=== PATIENT | female | born 1945 | race Caucasian/White ===

== ENCOUNTER 2017-02-02 09:15 | Emergency (ER) | payer BC, MEDICARE ==
[~2017-02-02] VITALS: Ht 170.2 cm; Wt 67.6 kg
[~2017-02-02 09:15] MED LIST: ASPI81TA50 PO; ATEN25TA PO; BETA1TAB10 PO; CA C1TAB38 PO; CIPR500T94 PO; HYDR-971 PO; LEVO750T31 PO; LOSA50TA2 PO; METR500T PO; METR70GE2 VG; MULT-245 PO; ONDA4TAB10 SL; Oxycodone Hcl/Acetaminophen PO; SIMV20TA3 PO
[2017-02-02 10:05] LABS: BASO % 0 % (0-3); EOS % 0 % (0-3); HEMOGLOBIN 14.3 g/dL (12.0-15.5); LYMPH # 1.5 x10^3/uL (1.0-4.8); LYMPH % 14 % (24-48); MEAN CORPUSCULAR HEMOGLOBIN 30 pg (25-35); MEAN CORPUSCULAR HGB CONC 33 g/dL (31-37); MEAN CORPUSCULAR VOLUME 90 fL (79-100); MONO % 8 % (0-9); NEUT % 78 % (31-73); PLATELET COUNT 163 x10^3/uL (140-400); RED BLOOD COUNT 4.76 x10^6/uL (3.50-5.40); RED CELL DISTRIBUTION WIDTH 13.2 % (11.5-14.5)
[2017-02-02 10:06] LABS: CALCIUM 9.9 mg/dL (8.5-10.1); CREATININE 0.8 mg/dL (0.6-1.0); GFR 70.7; POTASSIUM 4.6 mmol/L (3.5-5.1)
[2017-02-02 10:13] LABS: DIRECT BILIRUBIN 0.1 mg/dL (0.0-0.2); TOTAL BILIRUBIN 0.7 mg/dL (0.2-1.0); TOTAL PROTEIN 6.9 g/dL (6.4-8.2)
[2017-02-02 10:33] LABS: BILIRUBIN,URINE NEGATIVE (NEG); GLUCOSE,URINE NEGATIVE (NEG); NITRITE,URINE NEGATIVE (NEG); PH,URINE 5.5; PROTEIN,URINE NEGATIVE (NEG-TRACE)
--- NOTE | 2017-02-02 11:05 | PHYS DOC ---
Past Medical History Past Medical History: Constipation, High Cholesterol, Hypertension Additional Past Medical Histor: UTI Past Surgical History: Cholecystectomy Alcohol Use: None Drug Use: None Adult General Chief Complaint Chief Complaint: NAUSEA/VOMITING/DIARRHA HPI HPI 71-year-old female presenting to the emergency department with nausea vomiting and generalized abdominal pain with watery diarrhea over the past 2 days. Her pain is cramping sensation without a focal location. It is nonradiating. It is without alleviating factors. She has a history of generalized colitis and was referred to a GI doctor however the patient did not follow-up with a GI doctor. Otherwise she denies fevers or chills. Review of systems is negative for nausea vomiting diarrhea. She denies chest pain or shortness of breath. All other review of systems is negative unless otherwise noted in history of present illness. Review of Systems Review of Systems SEE ABOVE. Current Medications Current Medications Current Medications Medications (Trade) Dose Ordered Sig/Krystin Start Time Stop Time Status Last Admin Dose Admin Iohexol (Omnipaque 240 Mg/ml) 50 ml 1X ONCE 02/02/17 11:30 02/02/17 11:31 DC 02/02/17 12:31 50 ML Iohexol (Omnipaque 300 Mg/ml) 75 ml 1X ONCE 02/02/17 11:30 02/02/17 11:31 DC 02/02/17 12:31 75 ML Allergies Allergies Allergies Coded Allergies Type Severity Reaction Last Updated Verified No Known Drug Allergies 01/25/14 No Physical Exam Physical Exam Constitutional: Well developed, well nourished, no acute distress, non-toxic appearance. HENT: Normocephalic, atraumatic, bilateral external ears normal, oropharynx moist, no oral exudates, nose normal. [] Eyes: PERRLA, EOMI, conjunctiva normal, no discharge. Neck: Normal range of motion, no tenderness, supple, no stridor. [] Cardiovascular:Heart rate regular rhythm, no murmur Lungs & Thorax: Bilateral breath sounds clear to auscultation [] Abdomen: Abdomen is soft and mildly tender generally without a focus. Negative McBurney's point. Negative Guerra sign. No rebound tenderness or guarding present. Skin: Warm, dry, no erythema, no rash. [] Back: No tenderness, no CVA tenderness. Extremities: No tenderness, no cyanosis, no clubbing, ROM intact, no edema. Neurologic: Alert and oriented X 3, normal motor function, normal sensory function, no focal deficits noted. [] Psychologic: Affect normal, judgement normal, mood normal. [] Current Patient Data Vital Signs Vital Signs Date Time Temp Pulse Resp B/P Pulse Ox O2 Delivery O2 Flow Rate FiO2 02/02/17 12:30 56 20 161/71 100 02/02/17 09:32 97.7 Room Air 97.7 Lab Values Laboratory Tests Test 02/02/17 09:45 02/02/17 10:14 White Blood Count 11.0x10^3/uL (4.0-11.0) Red Blood Count 4.76x10^6/uL (3.50-5.40) Hemoglobin 14.3g/dL (12.0-15.5) Hematocrit 43.0% (36.0-47.0) Mean Corpuscular Volume 90fL (79-100) Mean Corpuscular Hemoglobin 30pg (25-35) Mean Corpuscular Hemoglobin Concent 33g/dL (31-37) Red Cell Distribution Width 13.2% (11.5-14.5) Platelet Count 163x10^3/uL (140-400) Neutrophils (%) (Auto) 78% (31-73) H Lymphocytes (%) (Auto) 14% (24-48) L Monocytes (%) (Auto) 8% (0-9) Eosinophils (%) (Auto) 0% (0-3) Basophils (%) (Auto) 0% (0-3) Neutrophils # (Auto) 8.6x10^3uL (1.8-7.7) H Lymphocytes # (Auto) 1.5x10^3/uL (1.0-4.8) Monocytes # (Auto) 0.8x10^3/uL (0.0-1.1) Eosinophils # (Auto) 0.0x10^3/uL (0.0-0.7) Basophils # (Auto) 0.0x10^3/uL (0.0-0.2) Sodium Level 142mmol/L (136-145) Potassium Level 4.6mmol/L (3.5-5.1) Chloride Level 104mmol/L (98-107) Carbon Dioxide Level 29mmol/L (21-32) Anion Gap 9 (6-14) Blood Urea Nitrogen 22mg/dL (7-20) H Creatinine 0.8mg/dL (0.6-1.0) Estimated GFR (Cockcroft-Gault) 70.7 Glucose Level 133mg/dL (70-99) H Lactic Acid Level 1.2mmol/L (0.4-2.0) Calcium Level 9.9mg/dL (8.5-10.1) Total Bilirubin 0.7mg/dL (0.2-1.0) Direct Bilirubin 0.1mg/dL (0.0-0.2) Aspartate Amino Transferase (AST) 40U/L (15-37) H Alanine Aminotransferase (ALT) 26U/L (14-59) Alkaline Phosphatase 69U/L (46-116) Troponin I Quantitative < 0.017ng/mL (0.000-0.055) Total Protein 6.9g/dL (6.4-8.2) Albumin 4.0g/dL (3.4-5.0) Lipase 106U/L (73-393) Urine Collection Type Unknown Urine Color Jonelle Urine Clarity Clear Urine pH 5.5 Urine Specific Hope >=1.030 Urine Protein Negativemg/dL (NEG-TRACE) Urine Glucose (UA) Negativemg/dL (NEG) Urine Ketones (Stick) Negativemg/dL (NEG) Urine Blood Moderate (NEG) Urine Nitrite Negative (NEG) Urine Bilirubin Negative (NEG) Urine Urobilinogen Dipstick 1.0mg/dL (0.2 mg/dL) Urine Leukocyte Esterase Negative (NEG) Urine RBC Occ/HPF (0-2) Urine WBC 0/HPF (0-4) Urine Squamous Epithelial Cells Occ/LPF Urine Amorphous Sediment Present/HPF Urine Bacteria Few/HPF (0-FEW) Urine Mucus Mod/LPF Laboratory Tests 02/02/17 09:45 Laboratory Tests 02/02/17 09:45 EKG EKG [] Radiology/Procedures Radiology/Procedures [] Course & Med Decision Making Course & Med Decision Making Pertinent Labs and Imaging studies reviewed. (See chart for details) [] 71-year-old female presenting to the emergency department with decreased mental status. Vital signs afebrile otherwise mild hypertension otherwise unremarkable. Pertinent physical exam showed a mildly tender abdomen without a focus. Nontender appendix. Nontender gallbladder. IV established, bloodwork given. CBC unremarkable. Chemistry panel shows mild uremia otherwise unremarkable. Troponin negative. Lactic acid within normal limits. CT the abdomen pelvis showed chronic thickening of the colon. On reexamination the patient's abdomen was less tender without any pain medications given. SHe is feeling better. She was able to tolerate oral intake. I recommended the patient follow-up with our tube filler over the next 5-7 days for colonoscopy. She was subsequent discharged home to follow up with her primary care doctor over the next 2-3 days if her symptoms did not improve. Dragon Disclaimer Dragon Disclaimer This electronic medical record was generated, in whole or in part, using a voice recognition dictation system. Departure Departure Impression: Primary Impression: Nausea & vomiting Additional Impression: Chronic colitis Disposition: 01 HOME, SELF-CARE Condition: STABLE Referrals: MABEL BROOKS MD (PCP) MARKO STUART MD in 5-7 days Patient Instructions: Abdominal Pain, Nausea and Vomiting Additional Instructions: Thank you for allowing us to participate in your care today. Followup with your primary care physician in 3 days if your symptoms do not improve. If you do not have a primary care provider you can ask for a list of our primary care providers. Return to the emergency department you have any new or concerning findings. This should be evaluated by the primary care physician and any necessary consulting services for continued management within a few days after discharge. Return to emergency room if you have any new or concerning symptoms including but not limited to fever, chills, nausea, vomiting, intractable pain, any new rashes, chest pain, shortness of air, uncontrolled bleeding, difficulty breathing, and/or vision loss. You may have been prescribed medication that can change in your level of thinking and ability to operate machinery. These medications include hydrocodone and Ativan. Also, Benadryl has been known to do this as well. Be sure to check with your pharmacist and ask if the medications you've prescribed can affect your level of consciousness. I recommend not operating heavy machinery or driving while on medication such as these. Scripts Hydrocodone Bit/Acetaminophen (Hydrocodone-Apap 5-325 )1 Each Tablet1 Tab PO PRN Q6HRS PRN PAIN #15 TAB Be careful as this medication may cause you to be drowsy or tired. Do not drive on this medication. Prov:SHRUTHI ERICKSON MD 02/02/17 Ondansetron (Zofran Odt)4 Mg Tab.rapdis1 Tab SL PRN Q8HRS PRN NAUSEA #6 TAB Prov:SHRUTHI ERICKSON MD 02/02/17 Problem Qualifiers SHRUTHI ERICKSON MD Feb 02, 2017 11:05
[2017-02-02 11:06] LABS: BACTERIA,URINE FEW /HPF (0-FEW); RBC,URINE OCC /HPF (0-2); SQUAMOUS EPITHELIAL CELL,UR OCC /LPF; WBC,URINE 0 /HPF (0-4)
[2017-02-02] MEDS ORDERED: IOHEXOL 240 MG/ML 50ML VIAL. PO ONE (11:30)
[2017-02-02] MEDS ORDERED: IOHEXOL 300 MG/ML 75 ML VIAL IV ONE (11:30)
[2017-02-02 12:30] VITALS: BP 161/71
--- NOTE | 2017-02-02 13:24 | RAD ---
CT of the abdomen and pelvis with contrast, 02/02/2017: History: Abdominal pain, colitis Multidetector CT imaging was performed following oral, IV and rectal administration of contrast. Comparison is made to a study from 06/02/2016. The gallbladder is surgically absent. There is mild pneumobilia. This is most commonly due to a previous sphincterotomy or bile duct surgery. There is no evidence of a hepatic mass or significant bile duct dilatation. The pancreas is unremarkable. The spleen is of normal size. There is a 3 cm cyst arising from the anterior aspect of the right kidney. The kidneys are otherwise unremarkable. Mild aortic calcific plaquing is present without evidence of aneurysm. No abdominal or pelvic adenopathy is seen.. The uterus is of normal size. There is mild smooth mural thickening involving predominantly the sigmoid colon. No bowel dilatation is evident. The small bowel loops are unremarkable. No free fluid or free air is evident in the abdomen or pelvis. Mild to moderate multilevel degenerative changes are present in the spine. IMPRESSION: 1. Mild sigmoid mural thickening suggesting chronic or recurrent colitis. Similar sigmoid mural thickening has been present on previous studies including a CT study from 11/27/2008. Is there a history of inflammatory bowel disease or old radiation therapy to the pelvis? 2. Pneumobilia, most commonly on a postsurgical basis or secondary to previous sphincterotomy. Correlation with the patient's surgical history is suggested. PQRS Compliance Statement: One or more of the following individualized dose reduction techniques were utilized for this examination: 1. Automated exposure control 2. Adjustment of the mA and/or kV according to patient size 3. Use of iterative reconstruction technique
[2017-02-02] MEDS ORDERED: HYDR-2666 PO (13:36)
[2017-02-02] MEDS ORDERED: ONDA4TAB10 SL (13:36)
== END 2017-02-02 13:57 | disposition home or self-care (01) ==
LOC: ER 09:15
DX: K52.9 Noninfective gastroenteritis and colitis, unspecified (principal); I10 Essential (primary) hypertension; E78.00 Pure hypercholesterolemia, unspecified; Z90.49 Acquired absence of other specified parts of digestive tract
CPT/HCPCS: 36415; 74177; 80048; 80076; 81001; 83605; 83690; 84484; 85027; 99285; Q9966; Q9967

== ENCOUNTER → 2017-02-25 | Day surgery (SDC) | payer BC, MEDICARE ==
[~2017-02-25] MED LIST changes: +HYDR-2666 PO; +IV RINGERS,LACTATED 1000ML 1,000 ML IV SCH; +PROPOFOL 40 ML IV ONE; +SODIUM PHOSPHATES 19/7GM 133 ML ENEMA. ONE
[2017-02-25 08:15] VITALS: BP 167/66
--- NOTE | 2017-02-26 14:02 | PATHOLOGY ---
PATHOLOGY REPORT * * * * * * * * FINAL DIAGNOSIS: Random colon biopsy: - Focal acute colitis. See comment. COMMENT: Sections of the random colon biopsy reveal multiple segments of colonic mucosa. A majority of the mucosal biopsies appear relatively normal or show edema of the lamina propria. However, there are several biopsy segments that show an acute inflammatory cell infiltrate within the lamina propria associated with shrunken colonic glands. The differential diagnosis includes acute self-limited colitis, acute infectious colitis, and acute ischemia. There is no evidence of a chronic destructive colitis. (JPM:[email or web address]; d/t: 02/26/17) REPORT ELECTRONICALLY SIGNED BY: Frederick Enciso M.D. DATE/TIME: 02/26/2017 14:00 * * * * * * * * GROSS PATHOLOGY: Received in formalin labeled "Neelam Voss and random colon bx," are multiple segments of bland soft tissue measuring 2.4 x 0.4 x 0.2 cm in aggregate dimensions and ranging from 0.2 to 0.5 cm in maximum dimension. The specimen is submitted entirely in cassette A1. (TTL; 02/25/2017) INITIAL CPT CODE(S): A; 42034 Professional services performed by [facility] [place] [address] Technical services performed by [facility] at [address] [place] [address], [facility] [address] [address]. SPECIMEN(S) RECEIVED: A.Random biopsy, r/o microscopic colitis CLINICAL HISTORY: Abdominal pain, diarrhea PATIENT: NEELAM VOSS /AGE: 1 1945 (Age: 71) PATIENT #: [id number] ALT CASE #: SPECIMEN COLLECTION DATE: 02/25/2017 SPECIMEN RECEIVED DATE: 02/25/2017 [facility] - [id number] [place] [address] - PHONE: [phone] * * * END OF REPORT * * *
== END | disposition home or self-care (01) ==
LOC: ENDOS 06:06
PROVIDERS: ATTEND Internal Medicine Gastroenterology
DX: K64.0 First degree hemorrhoids (principal); K52.9 Noninfective gastroenteritis and colitis, unspecified; K57.30 Diverticulosis of large intestine without perforation or abscess without bleeding; I10 Essential (primary) hypertension; E78.00 Pure hypercholesterolemia, unspecified; Z72.89 Other problems related to lifestyle; Z90.49 Acquired absence of other specified parts of digestive tract
CPT/HCPCS: J2704

== ENCOUNTER → 2017-04-27 | Outpatient (CLI) | payer BC ==
[2016-07-10 16:00] VITALS: BP_SYST 167
[2017-02-25 08:15] VITALS: BP_DIAS 66
[~2017-04-27] MED LIST changes: -IV RINGERS,LACTATED 1000ML 1,000 ML IV SCH; -PROPOFOL 40 ML IV ONE; -SODIUM PHOSPHATES 19/7GM 133 ML ENEMA. ONE
--- NOTE | 2017-04-27 13:53 | RAD ---
DATE: 04/27/2017 EXAM: DIGITAL SCREEN BILAT W/CAD HISTORY: Screening COMPARISON: 08/31/2009 This study was interpreted with the benefit of Computerized Aided Detection (CAD). FINDINGS: Breast Density: HETERO The breast parenchyma Is heterogeneiously dense, which could reduce sensitivity of mammography. Breast parenchyma level C. There has not been a significant change in the appearance of the breasts compared to the previous exam IMPRESSION: Benign findings BI-RADS CATEGORY: 2 BENIGN FINDING(S) RECOMMENDED FOLLOW-UP: 12M 12 MONTH FOLLOW-UP PQRS compliance statement: Patient information was entered into a reminder system with a target due date 04/27/2018 for the next mammogram. Mammography is a sensitive method for finding small breast cancers, but it does not detect them all and is not a substitute for careful clinical examination. A negative mammogram does not negate a clinically suspicious finding and should not result in delay in biopsying a clinically suspicious abnormality. "Our facility is accredited by the [employer] Mammography Program."
== END | disposition home or self-care (01) ==
LOC: MAMMO 08:04
PROVIDERS: ATTEND Family Medicine
DX: Z12.31 Encounter for screening mammogram for malignant neoplasm of breast (principal)
CPT/HCPCS: G0202; 77067

== ENCOUNTER 2017-06-26 06:57 | Emergency (ER) | payer BC ==
[~2017-06-26 06:57] MED LIST changes: -HYDR-2666 PO; +HYDR-2758 PO
[2017-06-26 07:29] LABS: BILIRUBIN,URINE NEGATIVE (NEG); GLUCOSE,URINE NEGATIVE (NEG); NITRITE,URINE POSITIVE (NEG); PROTEIN,URINE NEGATIVE (NEG-TRACE); UROBILINOGEN,URINE 0.2 mg/dL (0.2 mg/dL)
[2017-06-26 07:29] LABS: BASO # 0.1 x10^3/uL (0.0-0.2); BASO % 1 % (0-3); EOS % 0 % (0-3); HEMATOCRIT 42.6 % (36.0-47.0); HEMOGLOBIN 14.3 g/dL (12.0-15.5); LYMPH # 1.7 x10^3/uL (1.0-4.8); LYMPH % 17 % (24-48); MEAN CORPUSCULAR HEMOGLOBIN 31 pg (25-35); MEAN CORPUSCULAR HGB CONC 34 g/dL (31-37); MEAN CORPUSCULAR VOLUME 92 fL (79-100); MONO % 6 % (0-9); NEUT % 77 % (31-73); PLATELET COUNT 167 x10^3/uL (140-400); RED BLOOD COUNT 4.62 x10^6/uL (3.50-5.40); RED CELL DISTRIBUTION WIDTH 12.6 % (11.5-14.5); WHITE BLOOD COUNT 10.4 x10^3/uL (4.0-11.0)
[2017-06-26] MEDS ORDERED: IV NORMAL SALINE 1000ML BAG 1,000 ML IV ONE (07:30)
[2017-06-26] MEDS ORDERED: ONDANSETRON PF 4 MG/2 ML VIAL. IV ONE (07:30)
--- NOTE | 2017-06-26 07:37 | EKG ---
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
[2017-06-26 07:38] LABS: CALCIUM 9.9 mg/dL (8.5-10.1); CREATININE 0.9 mg/dL (0.6-1.0); GFR 61.7; POTASSIUM 3.9 mmol/L (3.5-5.1)
[2017-06-26 07:43] LABS: ALBUMIN 4.3 g/dL (3.4-5.0); ALBUMIN/GLOBULIN RATIO 1.3 (1.0-1.7); TOTAL BILIRUBIN 0.7 mg/dL (0.2-1.0); TOTAL PROTEIN 7.6 g/dL (6.4-8.2)
[2017-06-26] MEDS ORDERED: IOHEXOL 300 MG/ML 75 ML VIAL IV ONE (07:45)
[2017-06-26 08:00] LABS: BACTERIA,URINE MANY /HPF (0-FEW)
[2017-06-26] MEDS ORDERED: CONTRAST GIVEN MC PRN (08:00)
[2017-06-26] MEDS ORDERED: IV DEXTROSE 5%-LACT RINGERS 1,000 ML IV ONE (08:15)
--- NOTE | 2017-06-26 09:22 | RAD ---
CT of the abdomen and pelvis with contrast, 06/26/2017: History: Nausea and vomiting Multidetector CT imaging was performed following an IV bolus injection of iodinated contrast material. Comparison is made to a study from 02/02/2017. There is an unchanged small linear parenchymal opacity in the inferior lingular region on the left compatible with scarring. There is a small calcified pleural plaque in the right base. The gallbladder is surgically absent. No hepatic abnormality is seen. No pancreatic abnormality is detected. The spleen is of normal size. There is a single simple cyst in the right kidney. The kidneys show no evidence of obstruction. There is mild aortic calcific plaquing without evidence of aneurysm. No abdominal or pelvic adenopathy is seen. The uterus is unremarkable. There is radiopaque material mixed with stool throughout the colon. This may represent contrast from previous diagnostic study or radiopaque medication. The small bowel loops are not dilated. No free fluid or free air is evident in the abdomen or pelvis. There is a mild lumbar scoliosis with moderate multilevel degenerative change. IMPRESSION: 1. Chronic findings as described above. 2. No acute abdominal or pelvic abnormality is detected. PQRS Compliance Statement: One or more of the following individualized dose reduction techniques were utilized for this examination: 1. Automated exposure control 2. Adjustment of the mA and/or kV according to patient size 3. Use of iterative reconstruction technique
--- NOTE | 2017-06-26 09:39 | PHYS DOC ---
Past Medical History Past Medical History: Constipation, High Cholesterol, Hypertension Additional Past Medical Histor: UTI Past Surgical History: Cholecystectomy Alcohol Use: None Drug Use: None Adult General Chief Complaint Chief Complaint: NAUSEA/VOMITING/DIARRHA HPI HPI Patient is a 71 year old female presenting to the emergency department for evaluation of nausea vomiting. She denies any pain at all to me including chest abdomen and she also denies any shortness of breath diaphoresis diarrhea constipation dysuria hematuria. She says that she has not been able to take her medications or hold any food or fluids down. She is nontoxic appearing but appears uncomfortable. Review of Systems Review of Systems Constitutional: Denies fever or chills [] Eyes: Denies change in visual acuity, redness, or eye pain [] HENT: Denies nasal congestion or sore throat [] Respiratory: Denies cough or shortness of breath [] Cardiovascular: No additional information not addressed in HPI [] GI: Denies abdominal pain. + nausea, vomiting. No bloody stools or diarrhea [] : Denies dysuria or hematuria [] Musculoskeletal: Denies back pain or joint pain [] Integument: Denies rash or skin lesions [] Neurologic: Denies headache, focal weakness or sensory changes [] Current Medications Current Medications Current Medications Medications (Trade) Dose Ordered Sig/Krystin Start Time Stop Time Status Last Admin Dose Admin Ceftriaxone Sodium 50 ml @ 100 mls/hr 1X ONCE 06/26/17 08:15 06/26/17 08:44 DC 06/26/17 10:28 100 MLS/HR Dextrose/Lactated Ringer's 1,000 ml @ 1,000 mls/hr 1X ONCE 06/26/17 08:15 06/26/17 09:14 DC 06/26/17 08:15 1,000 MLS/HR Info (Do NOT chart on this entry -- for MONITORING) 1 each PRN DAILY PRN 06/26/17 08:00 06/26/17 12:21 DC Iohexol (Omnipaque 300 Mg/ml) 75 ml 1X ONCE 06/26/17 07:45 06/26/17 07:46 DC 06/26/17 08:13 75 ML Ondansetron HCl (Zofran) 8 mg 1X ONCE 06/26/17 07:30 06/26/17 07:31 DC 06/26/17 07:30 8 MG Promethazine HCl 12.5 mg/Sodium Chloride 50.5 ml @ 151.5 mls/ hr 1X STAT 06/26/17 09:47 06/26/17 10:06 DC 06/26/17 10:28 151.5 MLS/HR Sodium Chloride 1,000 ml @ 1,000 mls/hr 1X ONCE 06/26/17 07:30 06/26/17 08:29 DC 06/26/17 07:29 1,000 MLS/HR Allergies Allergies Allergies Coded Allergies Type Severity Reaction Last Updated Verified No Known Drug Allergies 02/25/17 No Physical Exam Physical Exam Constitutional: Well developed, well nourished, no acute distress, non-toxic appearance. [] HENT: Normocephalic, atraumatic, bilateral external ears normal, oropharynx moist, no oral exudates, nose normal. [] Eyes: PERRLA, EOMI, conjunctiva normal, no discharge. [] Neck: Normal range of motion, no tenderness, supple, no stridor. [] Cardiovascular:Heart rate regular rhythm, no murmur [] Lungs & Thorax: Bilateral breath sounds clear to auscultation [] Abdomen: Bowel sounds normal, soft, no tenderness, no masses, no pulsatile masses. [] Skin: Warm, dry, no erythema, no rash. [] Back: No tenderness, no CVA tenderness. [] Extremities: No tenderness, no cyanosis, no clubbing, ROM intact, no edema. [] Neurologic: Alert and oriented X 3, normal motor function, normal sensory function, no focal deficits noted. [] Psychologic: Affect normal, judgement normal, mood normal. [] Current Patient Data Vital Signs Vital Signs Date Time Temp Pulse Resp B/P (MAP) Pulse Ox O2 Delivery O2 Flow Rate FiO2 06/26/17 11:30 62 18 167/70 (102) 100 Room Air 06/26/17 07:08 98.7 98.7 Lab Values Laboratory Tests Test 06/26/17 07:09 06/26/17 07:15 Urine Collection Type Unknown Urine Color Yellow Urine Clarity Clear Urine pH 6.0 Urine Specific Clark 1.020 Urine Protein Negative mg/dL (NEG-TRACE) Urine Glucose (UA) Negative mg/dL (NEG) Urine Ketones (Stick) >=80 mg/dL (NEG) Urine Blood Large (NEG) Urine Nitrite Positive (NEG) Urine Bilirubin Negative (NEG) Urine Urobilinogen Dipstick 0.2 mg/dL (0.2 mg/dL) Urine Leukocyte Esterase Small (NEG) Urine RBC 11-20 /HPF (0-2) Urine WBC 5-10 /HPF (0-4) Urine Bacteria Many /HPF (0-FEW) White Blood Count 10.4 x10^3/uL (4.0-11.0) Red Blood Count 4.62 x10^6/uL (3.50-5.40) Hemoglobin 14.3 g/dL (12.0-15.5) Hematocrit 42.6 % (36.0-47.0) Mean Corpuscular Volume 92 fL (79-100) Mean Corpuscular Hemoglobin 31 pg (25-35) Mean Corpuscular Hemoglobin Concent 34 g/dL (31-37) Red Cell Distribution Width 12.6 % (11.5-14.5) Platelet Count 167 x10^3/uL (140-400) Neutrophils (%) (Auto) 77 % (31-73) H Lymphocytes (%) (Auto) 17 % (24-48) L Monocytes (%) (Auto) 6 % (0-9) Eosinophils (%) (Auto) 0 % (0-3) Basophils (%) (Auto) 1 % (0-3) Neutrophils # (Auto) 8.0 x10^3uL (1.8-7.7) H Lymphocytes # (Auto) 1.7 x10^3/uL (1.0-4.8) Monocytes # (Auto) 0.6 x10^3/uL (0.0-1.1) Eosinophils # (Auto) 0.0 x10^3/uL (0.0-0.7) Basophils # (Auto) 0.1 x10^3/uL (0.0-0.2) Sodium Level 139 mmol/L (136-145) Potassium Level 3.9 mmol/L (3.5-5.1) Chloride Level 101 mmol/L (98-107) Carbon Dioxide Level 28 mmol/L (21-32) Anion Gap 10 (6-14) Blood Urea Nitrogen 17 mg/dL (7-20) Creatinine 0.9 mg/dL (0.6-1.0) Estimated GFR (Cockcroft-Gault) 61.7 BUN/Creatinine Ratio 19 (6-20) Glucose Level 139 mg/dL (70-99) H Calcium Level 9.9 mg/dL (8.5-10.1) Magnesium Level 2.0 mg/dL (1.8-2.4) Total Bilirubin 0.7 mg/dL (0.2-1.0) Aspartate Amino Transferase (AST) 34 U/L (15-37) Alanine Aminotransferase (ALT) 21 U/L (14-59) Alkaline Phosphatase 51 U/L (46-116) Troponin I Quantitative < 0.017 ng/mL (0.000-0.055) Total Protein 7.6 g/dL (6.4-8.2) Albumin 4.3 g/dL (3.4-5.0) Albumin/Globulin Ratio 1.3 (1.0-1.7) Lipase 93 U/L (73-393) Laboratory Tests 06/26/17 07:15 Laboratory Tests 06/26/17 07:15 EKG EKG Sinus rhythm at 63 beats per minutes with normal axis no obvious ST elevation or depression and normal T waves. Radiology/Procedures Radiology/Procedures CT of the abdomen and pelvis with contrast, 06/26/2017: History: Nausea and vomiting Multidetector CT imaging was performed following an IV bolus injection of iodinated contrast material. Comparison is made to a study from 02/02/2017. There is an unchanged small linear parenchymal opacity in the inferior lingular region on the left compatible with scarring. There is a small calcified pleural plaque in the right base. The gallbladder is surgically absent. No hepatic abnormality is seen. No pancreatic abnormality is detected. The spleen is of normal size. There is a single simple cyst in the right kidney. The kidneys show no evidence of obstruction. There is mild aortic calcific plaquing without evidence of aneurysm. No abdominal or pelvic adenopathy is seen. The uterus is unremarkable. There is radiopaque material mixed with stool throughout the colon. This may represent contrast from previous diagnostic study or radiopaque medication. The small bowel loops are not dilated. No free fluid or free air is evident in the abdomen or pelvis. There is a mild lumbar scoliosis with moderate multilevel degenerative change. IMPRESSION: 1. Chronic findings as described above. 2. No acute abdominal or pelvic abnormality is detected. PQRS Compliance Statement: One or more of the following individualized dose reduction techniques were utilized for this examination: 1. Automated exposure control 2. Adjustment of the mA and/or kV according to patient size 3. Use of iterative reconstruction technique DICTATED and SIGNED BY: KALEY SANFORD MD DATE: 06/26/17909 Course & Med Decision Making Course & Med Decision Making Patient has a urinary tract infection and is quite dehydrated based off of the ketones in her urine. She was in the emergency department for over 5 hours receiving fluids and antibiotics and trying to by mouth challenge which she failed once but then did better on the second attempt. I did recommend admission for the patient given how she has only improved mildly in the emergency department and I thought that she would fail if she went home. However there is other considerations such as heart disease or worsening infection that could cause her to deteriorate quite quickly. She verbalized understanding and said that she very much wants to go home and will come back immediately if she starts feeling worse. Patient will be discharged against my wishes and she was told to follow with her primary care provider and come back to the ER sooner with worsening pain fevers vomiting or other general concerns. Patient verbalized understanding of the above instructions. Dragon Disclaimer Dragon Disclaimer This electronic medical record was generated, in whole or in part, using a voice recognition dictation system. Departure Departure Impression: Primary Impression: UTI (urinary tract infection) Additional Impressions: Nausea & vomiting Ketonuria Disposition: 01 HOME, SELF-CARE Condition: STABLE Referrals: MABEL BROOKS MD (PCP) Patient Instructions: Nausea and Vomiting Additional Instructions: DRINK PLENTY OF FLUIDS INCLUDING WATER AND GATORADE. COME BACK TO THE ED WITH WORSENING PAIN, FEVERS, VOMITING, OR OTHER GENERAL CONCERNS. THANK YOU! Scripts Levofloxacin (LEVAQUIN) 500 Mg Tablet 1 TAB PO DAILY, #5 TAB Prov: MARISSA GODINEZ DO 06/26/17 Ondansetron (ZOFRAN ODT) 4 Mg Tab.rapdis 4 MG PO BID Y for NAUSEA/VOMITING, #14 TAB Prov: MARISSA GODINEZ DO 06/26/17 Problem Qualifiers Primary Impression: UTI (urinary tract infection) Urinary tract infection type: acute cystitis Hematuria presence: without hematuria Qualified Codes: N30.00 - Acute cystitis without hematuria MARISSA GODINEZ DO Jun 26, 2017 09:39
[2017-06-26] MEDS ORDERED: PROMETHAZINE 12.5 MG in IV NORMAL SALINE 50ML 50 ML IV STA (09:47)
[2017-06-26 11:30] VITALS: BP 167/70
[2017-06-26] MEDS ORDERED: ONDA4TAB10 PO (12:12)
[2017-06-26] MEDS ORDERED: LEVO500T59 PO (12:12)
== END 2017-06-26 12:21 | disposition home or self-care (01) ==
LOC: ER 06:57
DX: N30.00 Acute cystitis without hematuria (principal); E86.0 Dehydration; R82.4 Acetonuria; E78.00 Pure hypercholesterolemia, unspecified; I10 Essential (primary) hypertension; Z87.440 Personal history of urinary (tract) infections; Z90.49 Acquired absence of other specified parts of digestive tract
CPT/HCPCS: 36415; 74177; 80053; 81001; 83690; 83735; 84484; 85027; 87086; 93005; 96361; 96365; 96368; 96375; 99285; C1887; J0690; J2405; J2550; J7030; Q9967

== ENCOUNTER 2017-06-28 07:09 | Inpatient (IN) | payer BC ==
[~2017-06-28] VITALS: Ht 170.2 cm; Wt 65.0 kg
[~2017-06-28 07:09] MED LIST changes: +LEVO500T59 PO; +ONDA4TAB10 PO
[2017-06-28 07:53] LABS: BASO # 0.1 x10^3/uL (0.0-0.2); BASO % 0 % (0-3); EOS % 0 % (0-3); HEMATOCRIT 40.9 % (36.0-47.0); HEMOGLOBIN 13.8 g/dL (12.0-15.5); LYMPH # 1.4 x10^3/uL (1.0-4.8); LYMPH % 10 % (24-48); MEAN CORPUSCULAR HEMOGLOBIN 31 pg (25-35); MEAN CORPUSCULAR HGB CONC 34 g/dL (31-37); MEAN CORPUSCULAR VOLUME 91 fL (79-100); MONO % 8 % (0-9); NEUT % 82 % (31-73); PLATELET COUNT 156 x10^3/uL (140-400); RED CELL DISTRIBUTION WIDTH 12.6 % (11.5-14.5)
[2017-06-28] MEDS ORDERED: IV NORMAL SALINE 1000ML BAG 1,000 ML IV ONE ×2 (08:00→09:45)
[2017-06-28] MEDS ORDERED: ONDANSETRON PF 4 MG/2 ML VIAL. IV ONE (08:00)
[2017-06-28] MEDS ORDERED: FAMOTIDINE 20 MG/2 ML VIAL IVP ONE (08:00)
--- NOTE | 2017-06-28 08:02 | PHYS DOC ---
Past Medical History Past Medical History: Constipation, High Cholesterol, Hypertension Additional Past Medical Histor: UTI Past Surgical History: Cholecystectomy Alcohol Use: None Drug Use: None Adult General Chief Complaint Chief Complaint: NAUSEA/VOMITING/DIARRHA HPI HPI Patient is a 71 year old female with history of hypertension and high cholesterol who presents today complaining of worsening nausea and vomiting after being diagnosed with UTI on Thursday. Patient states she was sent home with Levaquin and nausea medicine. She states she's been unable to tolerate of antibiotics or even her blood pressure medicines. Patient denies any fever. Denies any abdominal pain. Review of Systems Review of Systems Constitutional: Denies fever or chills [] Eyes: Denies change in visual acuity, redness, or eye pain [] HENT: Denies nasal congestion or sore throat [] Respiratory: Denies cough or shortness of breath [] Cardiovascular: No additional information not addressed in HPI [] GI: Denies abdominal pain, nausea, vomiting, bloody stools or diarrhea [] : Denies dysuria or hematuria [] Musculoskeletal: Denies back pain or joint pain [] Integument: Denies rash or skin lesions [] Neurologic: Denies headache, focal weakness or sensory changes [] Endocrine: Denies polyuria or polydipsia [] Current Medications Current Medications Current Medications Medications (Trade) Dose Ordered Sig/Krystin Start Time Stop Time Status Last Admin Dose Admin Famotidine (Pepcid) 20 mg 1X ONCE 06/28/17 08:00 06/28/17 08:01 DC 06/28/17 07:55 20 MG Ondansetron HCl (Zofran) 4 mg 1X ONCE 06/28/17 08:00 06/28/17 08:01 DC 06/28/17 07:54 4 MG Sodium Chloride 1,000 ml @ 1,000 mls/hr 1X ONCE 06/28/17 08:00 06/28/17 08:59 DC 06/28/17 07:52 1,000 MLS/HR Allergies Allergies Allergies Coded Allergies Type Severity Reaction Last Updated Verified No Known Drug Allergies 06/28/17 No Physical Exam Physical Exam Constitutional: Well developed, well nourished, no acute distress, non-toxic appearance. [] HENT: Normocephalic, atraumatic, bilateral external ears normal, oropharynx moist, no oral exudates, nose normal. [] Eyes: PERRLA, EOMI, conjunctiva normal, no discharge. [] Neck: Normal range of motion, no tenderness, supple, no stridor. [] Cardiovascular:Heart rate regular rhythm, no murmur [] Lungs & Thorax: Bilateral breath sounds clear to auscultation [] Abdomen: Bowel sounds normal, soft, no tenderness, no masses, no pulsatile masses. [] Skin: Warm, dry, no erythema, no rash. [] Back: No tenderness, no CVA tenderness. [] Extremities: No tenderness, no cyanosis, no clubbing, ROM intact, no edema. [] Neurologic: Alert and oriented X 3, normal motor function, normal sensory function, no focal deficits noted. [] Psychologic: Affect normal, judgement normal, mood normal. [] Current Patient Data Vital Signs Vital Signs Date Time Temp Pulse Resp B/P (MAP) Pulse Ox O2 Delivery O2 Flow Rate FiO2 06/28/17 07:45 58 16 200/81 (120) 100 Room Air 06/28/17 07:15 98.0 98.0 Lab Values Laboratory Tests Test 06/28/17 07:40 White Blood Count 15.0 x10^3/uL (4.0-11.0) H Red Blood Count 4.50 x10^6/uL (3.50-5.40) Hemoglobin 13.8 g/dL (12.0-15.5) Hematocrit 40.9 % (36.0-47.0) Mean Corpuscular Volume 91 fL (79-100) Mean Corpuscular Hemoglobin 31 pg (25-35) Mean Corpuscular Hemoglobin Concent 34 g/dL (31-37) Red Cell Distribution Width 12.6 % (11.5-14.5) Platelet Count 156 x10^3/uL (140-400) Neutrophils (%) (Auto) 82 % (31-73) H Lymphocytes (%) (Auto) 10 % (24-48) L Monocytes (%) (Auto) 8 % (0-9) Eosinophils (%) (Auto) 0 % (0-3) Basophils (%) (Auto) 0 % (0-3) Neutrophils # (Auto) 12.4 x10^3uL (1.8-7.7) H Lymphocytes # (Auto) 1.4 x10^3/uL (1.0-4.8) Monocytes # (Auto) 1.2 x10^3/uL (0.0-1.1) H Eosinophils # (Auto) 0.0 x10^3/uL (0.0-0.7) Basophils # (Auto) 0.1 x10^3/uL (0.0-0.2) Sodium Level 137 mmol/L (136-145) Potassium Level 3.4 mmol/L (3.5-5.1) L Chloride Level 97 mmol/L (98-107) L Carbon Dioxide Level 25 mmol/L (21-32) Anion Gap 15 (6-14) H Blood Urea Nitrogen 23 mg/dL (7-20) H Creatinine 0.8 mg/dL (0.6-1.0) Estimated GFR (Cockcroft-Gault) 70.7 BUN/Creatinine Ratio 29 (6-20) H Glucose Level 169 mg/dL (70-99) H Calcium Level 9.9 mg/dL (8.5-10.1) Total Bilirubin 0.9 mg/dL (0.2-1.0) Aspartate Amino Transferase (AST) 31 U/L (15-37) Alanine Aminotransferase (ALT) 15 U/L (14-59) Alkaline Phosphatase 48 U/L (46-116) Total Protein 7.6 g/dL (6.4-8.2) Albumin 4.3 g/dL (3.4-5.0) Albumin/Globulin Ratio 1.3 (1.0-1.7) Lipase 108 U/L (73-393) Ethyl Alcohol Level < 10 mg/dL (0-10) Laboratory Tests 06/28/17 07:40 Laboratory Tests 06/28/17 07:40 EKG EKG [] Radiology/Procedures Radiology/Procedures [] Course & Med Decision Making Course & Med Decision Making Pertinent Labs and Imaging studies reviewed. (See chart for details) This is a 71-year-old presented to the ED with worsening nausea and vomiting after being diagnosed with UTI on Thursday. Patient was sent home with Levaquin and nausea medicine. She states she's been unable to tolerate either. Patient was vomiting on arrival to the ED. Admitted under Dr. Simpson on arrival to the Ed. Started on Rocephin, zofran and IV fluids. She does not appear toxic and does not meet sepsis criteria. Dragon Disclaimer Dragon Disclaimer This electronic medical record was generated, in whole or in part, using a voice recognition dictation system. Departure Departure Impression: Primary Impression: Pyelonephritis Disposition: ADMITTED INPATIENT Condition: STABLE Referrals: MABEL BROOKS MD (PCP) MAUREEN RODRIGUEZ APRN Jun 28, 2017 08:02
[2017-06-28 08:06] LABS: CALCIUM 9.9 mg/dL (8.5-10.1); CREATININE 0.8 mg/dL (0.6-1.0); GFR 70.7; POTASSIUM 3.4 mmol/L (3.5-5.1)
[2017-06-28 08:12] LABS: ALBUMIN 4.3 g/dL (3.4-5.0); ALBUMIN/GLOBULIN RATIO 1.3 (1.0-1.7); TOTAL BILIRUBIN 0.9 mg/dL (0.2-1.0); TOTAL PROTEIN 7.6 g/dL (6.4-8.2)
[2017-06-28 09:26] VITALS: BP 176/60
[2017-06-28] MEDS ORDERED: PROMETHAZINE IM 25 MG/ML VIAL IM PRN (09:30)
[2017-06-28] MEDS ORDERED: ACETAMINOPHEN 325 MG TABLET. PO PRN (09:30)
[2017-06-28] MEDS ORDERED: ONDANSETRON PF 4 MG/2 ML VIAL. IV PRN (09:30)
[2017-06-28] MEDS ORDERED: [UNRECOGNIZED DRUG - CODE] PO (09:36)
[2017-06-28 10:40] VITALS: BP 151/51
[2017-06-28] MEDS ORDERED: ONDANSETRON ODT 4 MG TAB.RAPDIS. PO PRN ×3 (11:45→14:45)
[2017-06-28] MEDS: CALCIUM CARB/VIT D3 250/125 TABLET. PO SCH ×2 (12:23→17:18)
[2017-06-28] MEDS: ATENOLOL 25 MG TABLET. PO SCH ×2 (12:23→21:29)
[2017-06-28] MEDS: MULTIVITAMIN I-VITE TABLET. PO SCH (12:23)
[2017-06-28] MEDS: MULTIVITAMIN with MINERAL TABLET. PO SCH (12:23)
[2017-06-28] MEDS: ASPIRIN ENTERIC COATED 81 MG TABLET.DR. PO SCH (12:24)
[2017-06-28] MEDS: LOSARTAN POTASSIUM 50 MG TABLET. PO SCH (12:24)
--- NOTE | 2017-06-28 13:11 | PDOC ---
Provider Note Provider Note H&P dictated # [id number] James ECHAVARRIA MD Jun 28, 2017 13:11
--- NOTE | 2017-06-28 14:18 | HP ---
ADMIT DATE: 06/28/2017 ADMISSION DIAGNOSIS: Acute pyelonephritis. HISTORY OF PRESENT ILLNESS: This is a 71-year-old white female, who was in the ER 2 days ago and diagnosed with urinary tract infection and sent home with Zofran for nausea and Levaquin. Unfortunately, she was unable to keep down either of those medications and has continued to vomit and lost about 6 pounds in the last several days. She presented back to the Emergency Room and was subsequently admitted for IV meds and IV hydration. With IV antiemetics, her nausea and vomiting have now stopped and she is able to keep down some fluids. She was unaware of fever, chills, or night sweats. She has not been able to keep down her other usual medications. Her urine culture from 2 days ago grew E. coli sensitive to all meds. PAST MEDICAL HISTORY: Hypertension, hyperlipidemia, and constipation. She has not had any recent diarrhea. PAST SURGICAL HISTORY: Positive for cholecystectomy. SOCIAL HISTORY: Negative for tobacco or alcohol use. FAMILY HISTORY: Noncontributory. ALLERGIES: She has no known drug allergies. HOME MEDICATIONS: Include vitamin C 1000 mg daily, aspirin 81 mg daily, atenolol 25 mg b.i.d., beta-carotene ____A Vision, vitamin 1 daily, calcium with D 1 b.i.d., Cozaar 50 mg daily, multivitamin daily, and simvastatin 20 mg daily plus the recently prescribed Zofran and Levaquin. REVIEW OF SYSTEMS: CONSTITUTIONAL: Positive for weight loss from not eating and vomiting. 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 CARDIAC: No chest pain or palpitations. PULMONARY: No cough or wheezing. GASTROINTESTINAL: As above. GENITOURINARY: As above. MUSCULOSKELETAL: Some generalized weakness, but she was able to walk in to the ER from a car in the parking lot without assistance. SKIN: No rash. NEUROLOGIC: Negative for headaches or seizures. PHYSICAL EXAMINATION: VITAL SIGNS: Temperature 99.1, heart rate of 57, respiratory rate 16, blood pressure 151/51, and room air pulse ox of 100%. GENERAL: She is in no acute distress. HEENT: Her nose is red. Her lips are dry. Mouth is dry. NECK: Supple. HEART: Bradycardic, but regular. LUNGS: Clear. ABDOMEN: Soft. There is a little bit epigastric area discomfort. Posterior pharynx has a little bit erythematous presumably from vomiting. LYMPHATIC: No adenopathy noted in her neck. SKIN: Color and turgor are normal. EXTREMITIES: No clubbing, cyanosis, or peripheral edema. NEUROLOGIC: Her strength appears adequate. LABORATORY STUDIES: White count is 15, hemoglobin 13.8, and platelets 156. Chemistries: Her potassium is slightly low at 3.4, chloride is 97, and her BUN is elevated at 23 with a creatinine of 0.8. Glucose 169, albumin is 4.3, and lipase is normal. Liver enzymes are normal. Alcohol level was less than 10. Urine culture from 06/26/2017 is growing E. coli greater than 100,000 CFU - Intermediate to cephalothin, but sensitive to all else tested. IMAGING: CT of abdomen and pelvis done on 06/26/2017 showed some mild lumbar scoliosis with moderate multilevel degenerative change and some aortic calcific plaquing without aneurysm, but all else was unremarkable then. No imaging studies were repeated at this admission. ASSESSMENT: 1. Pyelonephritis from Escherichia coli. 2. Hypertension. 3. Atherosclerosis. PLAN: She is admitted for IV hydration, IV antibiotics, and IV antiemetics. We will resume her home medications as it appears that the antiemetics are working. James ECHAVARRIA MD DR: LITZY/milla JOB#: [id number] / [id number]
[2017-06-28 14:54] VITALS: BP 167/58
[2017-06-28 19:59] VITALS: BP 127/47
[2017-06-28] MEDS: SIMVASTATIN 20 MG TABLET PO SCH (21:29)
[2017-06-28 23:17] VITALS: BP 138/44
[2017-06-29 03:40] VITALS: BP 151/55
[2017-06-29 04:14] LABS: BASO % 0 % (0-3); EOS % 0 % (0-3); HEMATOCRIT 36.2 % (36.0-47.0); HEMOGLOBIN 12.5 g/dL (12.0-15.5); LYMPH # 1.9 x10^3/uL (1.0-4.8); LYMPH % 19 % (24-48); MEAN CORPUSCULAR HEMOGLOBIN 31 pg (25-35); MEAN CORPUSCULAR HGB CONC 35 g/dL (31-37); MEAN CORPUSCULAR VOLUME 91 fL (79-100); MONO % 12 % (0-9); NEUT % 69 % (31-73); PLATELET COUNT 124 x10^3/uL (140-400); RED BLOOD COUNT 3.97 x10^6/uL (3.50-5.40); RED CELL DISTRIBUTION WIDTH 12.5 % (11.5-14.5); WHITE BLOOD COUNT 10.1 x10^3/uL (4.0-11.0)
[2017-06-29 04:33] LABS: CALCIUM 8.2 mg/dL (8.5-10.1); CREATININE 0.7 mg/dL (0.6-1.0); GFR 82.5; POTASSIUM 3.4 mmol/L (3.5-5.1)
[2017-06-29 07:25] VITALS: BP 161/59
--- NOTE | 2017-06-29 08:42 | PDOC ---
PROGRESS NOTES Subjective Subjective Patient reports nausea persists, only took a few sips of clears this AM and had small amount emesis. Denies abdominal pain or diarrhea. Objective Objective Vital Signs Date Time Temp Pulse Resp B/P (MAP) Pulse Ox O2 Delivery O2 Flow Rate FiO2 06/29/17 07:25 98.1 58 20 161/59 (93) 98 Room Air 98.1 Intake and Output 06/29/17 07:00 Intake Total 1600 ml Balance 1600 ml Intake Oral 600 ml IV Total 1000 ml # Voids 3 Physical Exam Abdomen: Normal bowel sounds, Soft, No tenderness Heart: Regular rate Extremities: No edema General: Alert, Oriented X3, No acute distress Lungs: Clear to auscultation Assessment Assessment Problems Medical Problems: (1) Pyelonephritis Status: Acute Plan Plan of Care 1. Pyelonephritis with E coli - WBC's now WNL, no fever. Continue Rocephin until po intake improves. 2. N/V - persists. CT abdomen 06/26 was unremarkable. Will resume IVF as patient taking very little po. Change Zofran to scheduled (patient hasn't been asking for the prn as she did not know that it was available to her). Continue clears as tolerated, add Pepcid. 3. HTN - controlled, continue home meds. Comment Review of Relevant I have reviewed the following items lavon (where applicable) has been applied. Labs Laboratory Tests Test 06/28/17 07:40 06/29/17 03:25 White Blood Count 15.0 x10^3/uL (4.0-11.0) 10.1 x10^3/uL (4.0-11.0) Red Blood Count 4.50 x10^6/uL (3.50-5.40) 3.97 x10^6/uL (3.50-5.40) Hemoglobin 13.8 g/dL (12.0-15.5) 12.5 g/dL (12.0-15.5) Hematocrit 40.9 % (36.0-47.0) 36.2 % (36.0-47.0) Mean Corpuscular Volume 91 fL (79-100) 91 fL (79-100) Mean Corpuscular Hemoglobin 31 pg (25-35) 31 pg (25-35) Mean Corpuscular Hemoglobin Concent 34 g/dL (31-37) 35 g/dL (31-37) Red Cell Distribution Width 12.6 % (11.5-14.5) 12.5 % (11.5-14.5) Platelet Count 156 x10^3/uL (140-400) 124 x10^3/uL (140-400) Neutrophils (%) (Auto) 82 % (31-73) 69 % (31-73) Lymphocytes (%) (Auto) 10 % (24-48) 19 % (24-48) Monocytes (%) (Auto) 8 % (0-9) 12 % (0-9) Eosinophils (%) (Auto) 0 % (0-3) 0 % (0-3) Basophils (%) (Auto) 0 % (0-3) 0 % (0-3) Neutrophils # (Auto) 12.4 x10^3uL (1.8-7.7) 7.0 x10^3uL (1.8-7.7) Lymphocytes # (Auto) 1.4 x10^3/uL (1.0-4.8) 1.9 x10^3/uL (1.0-4.8) Monocytes # (Auto) 1.2 x10^3/uL (0.0-1.1) 1.2 x10^3/uL (0.0-1.1) Eosinophils # (Auto) 0.0 x10^3/uL (0.0-0.7) 0.0 x10^3/uL (0.0-0.7) Basophils # (Auto) 0.1 x10^3/uL (0.0-0.2) 0.0 x10^3/uL (0.0-0.2) Sodium Level 137 mmol/L (136-145) 136 mmol/L (136-145) Potassium Level 3.4 mmol/L (3.5-5.1) 3.4 mmol/L (3.5-5.1) Chloride Level 97 mmol/L (98-107) 101 mmol/L (98-107) Carbon Dioxide Level 25 mmol/L (21-32) 31 mmol/L (21-32) Anion Gap 15 (6-14) 4 (6-14) Blood Urea Nitrogen 23 mg/dL (7-20) 14 mg/dL (7-20) Creatinine 0.8 mg/dL (0.6-1.0) 0.7 mg/dL (0.6-1.0) Estimated GFR (Cockcroft-Gault) 70.7 82.5 BUN/Creatinine Ratio 29 (6-20) Glucose Level 169 mg/dL (70-99) 102 mg/dL (70-99) Calcium Level 9.9 mg/dL (8.5-10.1) 8.2 mg/dL (8.5-10.1) Total Bilirubin 0.9 mg/dL (0.2-1.0) Aspartate Amino Transf (AST/SGOT) 31 U/L (15-37) Alanine Aminotransferase (ALT/SGPT) 15 U/L (14-59) Alkaline Phosphatase 48 U/L (46-116) Total Protein 7.6 g/dL (6.4-8.2) Albumin 4.3 g/dL (3.4-5.0) Albumin/Globulin Ratio 1.3 (1.0-1.7) Lipase 108 U/L (73-393) Ethyl Alcohol Level < 10 mg/dL (0-10) Laboratory Tests Test 06/29/17 03:25 White Blood Count 10.1 x10^3/uL (4.0-11.0) Red Blood Count 3.97 x10^6/uL (3.50-5.40) Hemoglobin 12.5 g/dL (12.0-15.5) Hematocrit 36.2 % (36.0-47.0) Mean Corpuscular Volume 91 fL (79-100) Mean Corpuscular Hemoglobin 31 pg (25-35) Mean Corpuscular Hemoglobin Concent 35 g/dL (31-37) Red Cell Distribution Width 12.5 % (11.5-14.5) Platelet Count 124 x10^3/uL (140-400) Neutrophils (%) (Auto) 69 % (31-73) Lymphocytes (%) (Auto) 19 % (24-48) Monocytes (%) (Auto) 12 % (0-9) Eosinophils (%) (Auto) 0 % (0-3) Basophils (%) (Auto) 0 % (0-3) Neutrophils # (Auto) 7.0 x10^3uL (1.8-7.7) Lymphocytes # (Auto) 1.9 x10^3/uL (1.0-4.8) Monocytes # (Auto) 1.2 x10^3/uL (0.0-1.1) Eosinophils # (Auto) 0.0 x10^3/uL (0.0-0.7) Basophils # (Auto) 0.0 x10^3/uL (0.0-0.2) Sodium Level 136 mmol/L (136-145) Potassium Level 3.4 mmol/L (3.5-5.1) Chloride Level 101 mmol/L (98-107) Carbon Dioxide Level 31 mmol/L (21-32) Anion Gap 4 (6-14) Blood Urea Nitrogen 14 mg/dL (7-20) Creatinine 0.7 mg/dL (0.6-1.0) Estimated GFR (Cockcroft-Gault) 82.5 Glucose Level 102 mg/dL (70-99) Calcium Level 8.2 mg/dL (8.5-10.1) Medications Current Medications Sodium Chloride 1,000 ml @ 1,000 mls/hr 1X ONCE IV Last administered on 07:52; Start 06/28/17 at 08:00; Stop 06/28/17 at 08:59; Status DC Ondansetron HCl (Zofran) 4 mg 1X ONCE IV Last administered on 06/28/17 07:54; Start 06/28/17 at 08:00; Stop 06/28/17 at 08:01; Status DC Famotidine (Pepcid) 20 mg 1X ONCE IVP Last administered on 06/28/17 07:55; Start 06/28/17 at 08:00; Stop 06/28/17 at 08:01; Status DC Ondansetron HCl (Zofran) 4 mg PRN Q8HRS PRN IV NAUSEA/VOMITING; Start 06/28/17 at 09:30; Stop 06/29/17 at 08:45 Acetaminophen (Tylenol) 650 mg PRN Q4HRS PRN PO FEVER Last administered on 17:18; Start 06/28/17 at 09:30; Stop 06/29/17 at 09:29 Sodium Chloride 1,000 ml @ 100 mls/hr 1X ONCE IV Last administered on 10:05; Start 06/28/17 at 09:45; Stop 06/28/17 at 19:44; Status DC Ceftriaxone Sodium 50 ml @ 100 mls/hr DAILY IV ; Start 06/29/17 at 10:00; Status Cancel Promethazine HCl (Phenergan Im) 25 mg PRN Q6HRS PRN IM NAUSEA/VOMITING; Start 06/28/17 at 09:30 Ceftriaxone Sodium 50 ml @ 100 mls/hr 1X ONCE IV ; Start 06/28/17 at 09:45; Stop 06/28/17 at 10:14; Status Cancel Ceftriaxone Sodium 1 gm/ Sodium Chloride 50 ml @ 100 mls/hr Q24H IV ; Start 06/29/17 at 10:00; Stop 06/29/17 at 10:00; Status DC Ceftriaxone Sodium 1 gm/ Sodium Chloride 50 ml @ 100 mls/hr Q24H IV Last administered on 06/28/17 12:23; Start 06/28/17 at 12:00 Aspirin (Ecotrin) 81 mg DAILY PO Last administered on 06/28/17 12:24; Start 06/28/17 at 12:00 Atenolol (Tenormin) 25 mg BID PO Last administered on 06/28/17 21:29; Start 06/28/17 at 12:00 Losartan Potassium (Cozaar) 50 mg DAILY PO Last administered on 06/28/17 12:24 ; Start 06/28/17 at 12:00 Ondansetron HCl (Zofran Odt) 4 mg PRN Q8HRS PRN PO NAUSEA; Start 06/28/17 at 11: 45 Ondansetron HCl (Zofran Odt) 4 mg BID PRN PO NAUSEA/VOMITING; Start 06/28/17 at 11:45; Stop 06/28/17 at 14:35; Status DC Simvastatin (Zocor) 20 mg QHS PO Last administered on 06/28/17 21:29; Start 06/28/17 at 21:00 Multivitamins/ Minerals (I-Yoshi) 1 tab DAILY PO Last administered on 06/28/17 12:23; Start 06/28/17 at 12:00 Calcium/Vitamin D (Oscal D 250mg/ 125uts) 1 tab BIDWMEALS PO Last administered on 06/28/17 17:18; Start 06/28/17 at 12:00 Multivitamins (Thera M Plus) 1 tab DAILY PO Last administered on 06/28/17 12:23 ; Start 06/28/17 at 12:00 Ondansetron HCl (Zofran Odt) 4 mg PRN BID PRN PO NAUSEA/VOMITING; Start at 14:45 Ondansetron HCl (Zofran) 8 mg Q8HRS IV ; Start 06/29/17 at 08:45; Stop 07/04/17 at 08:44 Active Scripts Active Levaquin (Levofloxacin) 500 Mg Tablet 1 Tab PO DAILY Zofran Odt (Ondansetron) 4 Mg Tab.rapdis 4 Mg PO BID PRN Zofran Odt (Ondansetron) 4 Mg Tab.rapdis 1 Tab SL PRN Q8HRS PRN Flagyl (Metronidazole) 500 Mg Tablet 500 Mg PO TID Cozaar (Losartan Potassium) 50 Mg Tablet 50 Mg PO DAILY Reported Vitamin C With Lay Hips (Ascorbic Acid) 1,000 Mg Tablet 1,000 Mg PO Aspir-Low (Aspirin) 81 Mg Tablet.dr 81 Mg PO DAILY Multi Vitamin Daily (Multivitamin) 1 Each Tablet 1 Each PO DAILY Vision Vitamins (Beta-Carotene(A) W-C & E/Min) 1 Each Tablet 1 Each PO DAILY Calcium + D Soft Chewable Tab (Ca Carbonate/Vitamin D3/Vit K) 1 Each Tab.chew 1 Each PO BID Atenolol 25 Mg Tablet 25 Mg PO BID Simvastatin 20 Mg Tablet 20 Mg PO DAILY Vitals/I & O Vital Sign - Last 24 Hours 06/28/17 06/28/17 06/28/17 06/28/17 08:45 09:26 09:26 09:51 Temp 98.8 98.8 98.8 98.8 Pulse 54 61 61 Resp 16 16 16 B/P (MAP) 164/70 (101) 176/60 (98) 176/60 (98) Pulse Ox 98 98 98 O2 Delivery Room Air Room Air Room Air Room Air 06/28/17 06/28/17 06/28/17 06/28/17 10:40 12:23 12:24 14:54 Temp 99.1 98.7 99.1 98.7 Pulse 57 57 57 56 Resp 16 18 B/P (MAP) 151/51 (84) 151/51 151/51 167/58 (94) Pulse Ox 100 99 O2 Delivery Room Air Room Air 06/28/17 06/28/17 06/28/17 06/28/17 19:59 20:00 21:29 23:17 Temp 98.6 98.4 98.6 98.4 Pulse 60 60 52 Resp 16 16 B/P (MAP) 127/47 (73) 127/47 138/44 (75) Pulse Ox 97 98 O2 Delivery Room Air Room Air Room Air 06/29/17 06/29/17 03:40 07:25 Temp 98.6 98.1 98.6 98.1 Pulse 52 58 Resp 16 20 B/P (MAP) 151/55 (87) 161/59 (93) Pulse Ox 99 98 O2 Delivery Room Air Room Air Intake and Output 06/28/17 06/28/17 06/29/17 15:00 23:00 07:00 Intake Total 1000 ml 600 ml Balance 1000 ml 600 ml MABEL BROOKS MD Jun 29, 2017 08:42
[2017-06-29] MEDS: FAMOTIDINE 20 MG/2 ML VIAL IVP SCH ×2 (09:14→21:22)
[2017-06-29] MEDS: ASPIRIN ENTERIC COATED 81 MG TABLET.DR. PO SCH (09:17)
[2017-06-29] MEDS: ONDANSETRON PF 4 MG/2 ML VIAL. IV SCH ×3 (09:17→21:24)
[2017-06-29] MEDS: ATENOLOL 25 MG TABLET. PO SCH ×2 (09:17→21:22)
[2017-06-29] MEDS: CALCIUM CARB/VIT D3 250/125 TABLET. PO SCH ×2 (09:17→16:54)
[2017-06-29] MEDS: LOSARTAN POTASSIUM 50 MG TABLET. PO SCH (09:18)
[2017-06-29] MEDS: MULTIVITAMIN I-VITE TABLET. PO SCH (09:18)
[2017-06-29] MEDS: MULTIVITAMIN with MINERAL TABLET. PO SCH (09:18)
[2017-06-29] MEDS: POTASSIUM CL 20MEQ-0.45% NACL 1,000 ML IV SCH ×2 (09:19→21:26)
[2017-06-29 11:00] VITALS: BP 141/46
[2017-06-29 14:42] VITALS: BP 162/64
[2017-06-29] MEDS ORDERED: ACETAMINOPHEN 325 MG TABLET. PO PRN (19:15)
[2017-06-29 19:20] VITALS: BP 156/58
[2017-06-29] MEDS: SIMVASTATIN 20 MG TABLET PO SCH (21:22)
[2017-06-29 23:25] VITALS: BP 126/41
--- NOTE | 2017-06-30 00:08 | ACF ---
Admission Forms Criteria PYELONEPHRITIS, ACUTE Clinical Indications for Admission to Inpatient Care ([place]/check or initial the applicable condition/criteria) Admission is indicated for 1 or more of the following 1)(2)(3)(4)(5)(6) [ ]I. Failure of outpatient treatment [ ]II. beyond 24 weeks' gestation(8)(9)(10) [ ]III. Immunocompromised state (eg, AIDS, sickle cell disease, chronic systemic corticosteroid use) [ ]. Known renal or urologic abnormalities (eg, structural abnormalities, renal calculi, urinary stent, previous urologic surgery) [ ]V. Condition that requires drainage procedure, including 1 or more of the following: [ ]a) Urinary obstruction(11) [ ]b) Renal or perinephric abscess [ ]c) Emphysematous pyelonephritis(12) [ ]d) Pyelitis [ ]e) Pyonephrosis [X ]Vl. Inpatient admission required[A] rather than observation care (see Pyelonephritis, Acute: Observation Care guideline as appropriate) because of 1 or more of the following(13 )(14)(15): [ ]a) Hemodynamic instability(16) [ ]b) Altered mental status that is severe or persistent [ ]c) High fever or infection requiring inpatient admission as indicated by 1 or more of the following(17)(18): [ ]1) Documented bacteremia [ ]2) Temperature greater than 104.9 degrees F (40.5 degrees C) (oral) [ ]3) Temperature greater than 103.1 degrees F (39.5 degrees C) (oral) or rectal temperature less than 95 degrees F (35 degrees C) (eg, thought to be due to infection) that does not respond to all emergency treatment measures(19)(20 [ ]d) Acute renal failure [ ]e) Need for IV hydration support (eg, inability to maintain oral hydration ) despite outpatient and observation care treatment [ X]f) Other condition, treatment, or monitoring requiring inpatient admission The original [facility] [employer] content created by Salena Aguilar has been revised. The portions of the content which have been revised are identified through the use of italic text, and Salena Aguilar has neither reviewed nor approved the modified material. All other unmodified content is copyright [facility]. Please see references footnote in the original [facility] edition 2015 Admission Criteria Met?: Yes MARISSA ZEPEDA Jun 30, 2017 00:08
[2017-06-30 03:25] VITALS: BP 155/56
[2017-06-30 05:11] LABS: CALCIUM 8.1 mg/dL (8.5-10.1); CREATININE 0.6 mg/dL (0.6-1.0); GFR 98.5; POTASSIUM 3.4 mmol/L (3.5-5.1)
[2017-06-30] MEDS: POTASSIUM CL 20MEQ-0.45% NACL 1,000 ML IV SCH (06:09)
[2017-06-30] MEDS: ONDANSETRON PF 4 MG/2 ML VIAL. IV SCH (06:10)
[2017-06-30 07:00] VITALS: BP 156/59
[2017-06-30] MEDS: FAMOTIDINE 20 MG/2 ML VIAL IVP SCH (08:11)
[2017-06-30] MEDS: MULTIVITAMIN I-VITE TABLET. PO SCH (08:11)
[2017-06-30] MEDS: ASPIRIN ENTERIC COATED 81 MG TABLET.DR. PO SCH (08:11)
[2017-06-30] MEDS: CALCIUM CARB/VIT D3 250/125 TABLET. PO SCH (08:11)
[2017-06-30] MEDS: ATENOLOL 25 MG TABLET. PO SCH (08:12)
[2017-06-30] MEDS: MULTIVITAMIN with MINERAL TABLET. PO SCH (08:13)
[2017-06-30] MEDS: LOSARTAN POTASSIUM 50 MG TABLET. PO SCH (08:13)
--- NOTE | 2017-06-30 08:43 | PDOC ---
PROGRESS NOTES Subjective Subjective Patient reports she feels much better, ready to try regular diet and then go home. Objective Objective Vital Signs Date Time Temp Pulse Resp B/P (MAP) Pulse Ox O2 Delivery O2 Flow Rate FiO2 06/30/17 08:13 52 156/59 06/30/17 07:00 98.2 18 97 Room Air 98.2 Intake and Output 06/30/17 06:59 Intake Total 700 ml Balance 700 ml Intake Oral 700 ml # Voids 4 Physical Exam Abdomen: Normal bowel sounds, Soft, No tenderness Heart: Regular rate Extremities: No edema General: Alert, Oriented X3, No acute distress Lungs: Clear to auscultation Assessment Assessment Problems Medical Problems: (1) Pyelonephritis Status: Acute Plan Plan of Care 1. Pyelonephritis - improving. Home today, has Levaquin at home to complete tx for E Coli UTI. 2. n/v - resolved. Advance diet and discharge if able to tolerate. Has Zofran at home. 3. hypokalemia - mildly decreased K+ persists, will replace po x1 before discharge. 4. HTN - controlled, continue home meds. Comment Review of Relevant I have reviewed the following items lavon (where applicable) has been applied. Labs Laboratory Tests Test 06/29/17 03:25 06/30/17 03:20 White Blood Count 10.1 x10^3/uL (4.0-11.0) Red Blood Count 3.97 x10^6/uL (3.50-5.40) Hemoglobin 12.5 g/dL (12.0-15.5) Hematocrit 36.2 % (36.0-47.0) Mean Corpuscular Volume 91 fL (79-100) Mean Corpuscular Hemoglobin 31 pg (25-35) Mean Corpuscular Hemoglobin Concent 35 g/dL (31-37) Red Cell Distribution Width 12.5 % (11.5-14.5) Platelet Count 124 x10^3/uL (140-400) Neutrophils (%) (Auto) 69 % (31-73) Lymphocytes (%) (Auto) 19 % (24-48) Monocytes (%) (Auto) 12 % (0-9) Eosinophils (%) (Auto) 0 % (0-3) Basophils (%) (Auto) 0 % (0-3) Neutrophils # (Auto) 7.0 x10^3uL (1.8-7.7) Lymphocytes # (Auto) 1.9 x10^3/uL (1.0-4.8) Monocytes # (Auto) 1.2 x10^3/uL (0.0-1.1) Eosinophils # (Auto) 0.0 x10^3/uL (0.0-0.7) Basophils # (Auto) 0.0 x10^3/uL (0.0-0.2) Sodium Level 136 mmol/L (136-145) 136 mmol/L (136-145) Potassium Level 3.4 mmol/L (3.5-5.1) 3.4 mmol/L (3.5-5.1) Chloride Level 101 mmol/L (98-107) 102 mmol/L (98-107) Carbon Dioxide Level 31 mmol/L (21-32) 28 mmol/L (21-32) Anion Gap 4 (6-14) 6 (6-14) Blood Urea Nitrogen 14 mg/dL (7-20) 12 mg/dL (7-20) Creatinine 0.7 mg/dL (0.6-1.0) 0.6 mg/dL (0.6-1.0) Estimated GFR (Cockcroft-Gault) 82.5 98.5 Glucose Level 102 mg/dL (70-99) 90 mg/dL (70-99) Calcium Level 8.2 mg/dL (8.5-10.1) 8.1 mg/dL (8.5-10.1) Laboratory Tests Test 06/30/17 03:20 Sodium Level 136 mmol/L (136-145) Potassium Level 3.4 mmol/L (3.5-5.1) Chloride Level 102 mmol/L (98-107) Carbon Dioxide Level 28 mmol/L (21-32) Anion Gap 6 (6-14) Blood Urea Nitrogen 12 mg/dL (7-20) Creatinine 0.6 mg/dL (0.6-1.0) Estimated GFR (Cockcroft-Gault) 98.5 Glucose Level 90 mg/dL (70-99) Calcium Level 8.1 mg/dL (8.5-10.1) Medications Current Medications Sodium Chloride 1,000 ml @ 1,000 mls/hr 1X ONCE IV Last administered on 07:52; Start 06/28/17 at 08:00; Stop 06/28/17 at 08:59; Status DC Ondansetron HCl (Zofran) 4 mg 1X ONCE IV Last administered on 06/28/17 07:54; Start 06/28/17 at 08:00; Stop 06/28/17 at 08:01; Status DC Famotidine (Pepcid) 20 mg 1X ONCE IVP Last administered on 06/28/17 07:55; Start 06/28/17 at 08:00; Stop 06/28/17 at 08:01; Status DC Ondansetron HCl (Zofran) 4 mg PRN Q8HRS PRN IV NAUSEA/VOMITING; Start 06/28/17 at 09:30; Stop 06/29/17 at 08:45; Status DC Acetaminophen (Tylenol) 650 mg PRN Q4HRS PRN PO FEVER Last administered on 17:18; Start 06/28/17 at 09:30; Stop 06/29/17 at 09:29; Status DC Sodium Chloride 1,000 ml @ 100 mls/hr 1X ONCE IV Last administered on 10:05; Start 06/28/17 at 09:45; Stop 06/28/17 at 19:44; Status DC Ceftriaxone Sodium 50 ml @ 100 mls/hr DAILY IV ; Start 06/29/17 at 10:00; Status Cancel Promethazine HCl (Phenergan Im) 25 mg PRN Q6HRS PRN IM NAUSEA/VOMITING; Start 06/28/17 at 09:30 Ceftriaxone Sodium 50 ml @ 100 mls/hr 1X ONCE IV ; Start 06/28/17 at 09:45; Stop 06/28/17 at 10:14; Status Cancel Ceftriaxone Sodium 1 gm/ Sodium Chloride 50 ml @ 100 mls/hr Q24H IV ; Start 06/29/17 at 10:00; Stop 06/29/17 at 10:00; Status DC Ceftriaxone Sodium 1 gm/ Sodium Chloride 50 ml @ 100 mls/hr Q24H IV Last administered on 06/29/17 11:58; Start 06/28/17 at 12:00 Aspirin (Ecotrin) 81 mg DAILY PO Last administered on 06/30/17 08:11; Start 06/28/17 at 12:00 Atenolol (Tenormin) 25 mg BID PO Last administered on 06/30/17 08:12; Start 06/28/17 at 12:00 Losartan Potassium (Cozaar) 50 mg DAILY PO Last administered on 06/30/17 08:13 ; Start 06/28/17 at 12:00 Ondansetron HCl (Zofran Odt) 4 mg PRN Q8HRS PRN PO NAUSEA; Start 06/28/17 at 11: 45 Ondansetron HCl (Zofran Odt) 4 mg BID PRN PO NAUSEA/VOMITING; Start 06/28/17 at 11:45; Stop 06/28/17 at 14:35; Status DC Simvastatin (Zocor) 20 mg QHS PO Last administered on 06/29/17 21:22; Start 06/28/17 at 21:00 Multivitamins/ Minerals (I-Yoshi) 1 tab DAILY PO Last administered on 06/30/17 08:11; Start 06/28/17 at 12:00 Calcium/Vitamin D (Oscal D 250mg/ 125uts) 1 tab BIDWMEALS PO Last administered on 06/30/17 08:11; Start 06/28/17 at 12:00 Multivitamins (Thera M Plus) 1 tab DAILY PO Last administered on 06/30/17 08:13 ; Start 06/28/17 at 12:00 Ondansetron HCl (Zofran Odt) 4 mg PRN BID PRN PO NAUSEA/VOMITING; Start at 14:45 Ondansetron HCl (Zofran) 8 mg Q8HRS IV Last administered on 06/30/17 06:10; Start 06/29/17 at 08:45; Stop 07/04/17 at 08:44 Famotidine (Pepcid) 20 mg BID IVP Last administered on 06/30/17 08:11; Start at 09:00 Potassium Chloride/Sodium Chloride 1,000 ml @ 100 mls/hr Q10H IV Last administered on 06/30/17 06:09; Start 06/29/17 at 09:00 Acetaminophen (Tylenol) 650 mg PRN Q6HRS PRN PO PAIN; Start 8/7/17 at 19:15 Active Scripts Active Levaquin (Levofloxacin) 500 Mg Tablet 1 Tab PO DAILY Zofran Odt (Ondansetron) 4 Mg Tab.rapdis 4 Mg PO BID PRN Zofran Odt (Ondansetron) 4 Mg Tab.rapdis 1 Tab SL PRN Q8HRS PRN Flagyl (Metronidazole) 500 Mg Tablet 500 Mg PO TID Cozaar (Losartan Potassium) 50 Mg Tablet 50 Mg PO DAILY Reported Vitamin C With Lay Hips (Ascorbic Acid) 1,000 Mg Tablet 1,000 Mg PO Aspir-Low (Aspirin) 81 Mg Tablet.dr 81 Mg PO DAILY Multi Vitamin Daily (Multivitamin) 1 Each Tablet 1 Each PO DAILY Vision Vitamins (Beta-Carotene(A) W-C & E/Min) 1 Each Tablet 1 Each PO DAILY Calcium + D Soft Chewable Tab (Ca Carbonate/Vitamin D3/Vit K) 1 Each Tab.chew 1 Each PO BID Atenolol 25 Mg Tablet 25 Mg PO BID Simvastatin 20 Mg Tablet 20 Mg PO DAILY Vitals/I & O Vital Sign - Last 24 Hours 06/29/17 06/29/17 06/29/17 06/29/17 09:17 09:18 11:00 14:42 Temp 98.5 98.6 98.5 98.6 Pulse 58 58 56 53 Resp 16 18 B/P (MAP) 161/59 161/59 141/46 (77) 162/64 (96) Pulse Ox 97 96 O2 Delivery Room Air Room Air 06/29/17 06/29/17 06/29/17 06/30/17 19:20 21:22 23:25 03:25 Temp 98.2 98.1 98.4 98.2 98.1 98.4 Pulse 56 56 51 53 Resp 18 18 18 B/P (MAP) 156/58 (90) 156/58 126/41 (69) 155/56 (89) Pulse Ox 96 97 98 O2 Delivery Room Air Room Air Room Air 06/30/17 06/30/17 06/30/17 07:00 08:12 08:13 Temp 98.2 98.2 Pulse 52 52 52 Resp 18 B/P (MAP) 156/59 (91) 156/59 156/59 Pulse Ox 97 O2 Delivery Room Air Intake and Output 06/29/17 06/29/17 06/30/17 14:59 22:59 06:59 Intake Total 600 ml 100 ml Balance 600 ml 100 ml MABEL BROOKS MD Jun 30, 2017 08:43
[2017-06-30] MEDS ORDERED: POTASSIUM CHLORIDE 20 MEQ TABLET.ER. PO ONE (09:00)
--- NOTE | 2017-06-30 09:32 | DS ---
DATE OF DISCHARGE: 06/30/2017 CHIEF COMPLAINT: Nausea and vomiting. HISTORY OF PRESENT ILLNESS: The patient is a 71-year-old female who had been seen in the [facility] one day prior to this admission for complaint of nausea and vomiting. She was treated with IV fluids and antiemetics. She was found to have evidence of a urinary tract infection and was started on p.o. Levaquin for treatment of this. The ER initially advised her to stay to be admitted as she was significantly nauseous, but she felt that she could manage at home, so she was discharged to home that day. She returned to the Emergency Room on the day of this admission reporting that the nausea and vomiting had persisted and she was unable to keep down any food or fluids. She was found to have evidence of pyelonephritis with an elevated white blood count and was admitted for further treatment. HOSPITAL COURSE: The patient was started on Rocephin daily for treatment of her urinary tract infection. Culture showed E. coli, which was [place] sensitive. CT of the abdomen and pelvis done on her first ER visit did not show any acute abnormalities. The patient required IV fluids and antiemetics for control of her nausea. She remained afebrile. Her white count quickly normalized. She states that she now feels much better. She is tolerating clear liquids with a good appetite. Her diet will be advanced and she will be discharged home later today if she is able to tolerate regular diet. She already has Levaquin at home for treatment of her UTI and she is advised to take 4 more doses of this for a total of 7 days of treatment. The patient's blood pressure was controlled with her usual medications. Her potassium is very mildly decreased at 3.4. This will be replaced orally before discharge today. FINAL DIAGNOSES: 1. Pyelonephritis due to Escherichia coli. 2. Nausea and vomiting with dehydration, resolved. 3. Hypokalemia. 4. Hypertension. DISCHARGE MEDICATIONS: Levaquin 500 mg one daily for 4 more days, aspirin 81 mg daily, atenolol 25 mg b.i.d., losartan 50 mg daily, Zofran 4 mg p.o. p.r.n. nausea, simvastatin 20 mg daily. FOLLOWUP: Followup is with Dr. Howell next week as already scheduled. MABEL HOWELL MD DR: DYLAN/milla JOB#: [id number] / [id number]
[2017-06-30 11:00] VITALS: BP 147/60
== END 2017-06-30 12:55 | disposition home or self-care (01) | DRG 690 ==
LOC: ER 07:09 → 6 SOUTH 08:13
PROVIDERS: ADMIT Family Medicine; ATTEND Family Medicine
DX: N10 Acute pyelonephritis (principal); I10 Essential (primary) hypertension; B96.20 Unspecified Escherichia coli [E. coli] as the cause of diseases classified elsewhere; E78.00 Pure hypercholesterolemia, unspecified; E78.5 Hyperlipidemia, unspecified; E86.0 Dehydration; E87.6 Hypokalemia; I70.8 Atherosclerosis of other arteries; K59.00 Constipation, unspecified; Z90.49 Acquired absence of other specified parts of digestive tract; Z79.899 Other long term (current) drug therapy
CPT/HCPCS: 36415; 80048; 80053; 83690; 85027; 96361; 96374; 96375; G0480; J0696; J2405; J7030; S0028; 99285-25

== ENCOUNTER 2018-09-23 10:08 | Emergency (ER) | payer BC ==
[~2018-09-23] VITALS: Ht 170.2 cm; Wt 61.2 kg
[~2018-09-23 10:08] MED LIST changes: +[UNRECOGNIZED DRUG - CODE] PO
[2018-09-23] MEDS ORDERED: IV NORMAL SALINE 1000ML BAG 1,000 ML IV ONE (10:30)
[2018-09-23] MEDS ORDERED: ONDANSETRON PF 4 MG/2 ML VIAL. IV ONE (10:30)
--- NOTE | 2018-09-23 11:04 | EKG ---
[facility] [address] [place] [id number] Test Date: 2018-09-23 Test Time: 10:49:54 Pat Name: PATRICIA CREW Department: Room: Gender: F Fiber Analyst: : 1945 Requested By: ROYCE KNIGHT Order Number: [id number] Reading MD: Ti Laurent Measurements Intervals [place] Rate: 59 P: 49 IA: 176 QRS: 64 QRSD: 78 T: 59 QT: 410 QTc: 410 Interpretive Statements SINUS RHYTHM QRS(T) CONTOUR ABNORMALITY CONSISTENT WITH ANTEROSEPTAL INFARCT AGE UNDETERMINED ABNORMAL ECG Compared to ECG 08/04/2017 15:28:23 Myocardial infarct finding now present Electronically Signed On 09-27-2018 12:52:26 TELECOMMUNICATIONS TECHNICIAN by Ti Laurent
--- NOTE | 2018-09-23 11:30 | PHYS DOC ---
Past Medical History Past Medical History: Constipation, High Cholesterol, Hypertension Additional Past Medical Histor: UTI; colitis Past Surgical History: Cholecystectomy Alcohol Use: None Drug Use: None Adult General Chief Complaint Chief Complaint: NAUSEA/VOMITING/DIARRHA HPI HPI Patient is a 72 year old female presents the emergency room with vomiting. She has had nausea and vomiting for 2 days as an isolated symptoms she denies any other symptoms at all she tells me she has no gallbladder. She has had stress taking care of her family member who has dementia she received Zofran yesterday from her primary care doctor but it has not helped she denies chest pain shortness of breath abdominal pain fever or diarrhea just the vomiting. She did keep some water down today. Of note she has presented to the emergency room a few times in the past for vomiting and at one or another did one time had a diagnosis of pyelonephritis but at another time did not have any objective problem. Review of Systems Review of Systems Constitutional: Denies fever or chills [] Eyes: Denies change in visual acuity, redness, or eye pain [] HENT: Denies nasal congestion or sore throat [] Respiratory: Denies cough or shortness of breath [] Cardiovascular: No additional information not addressed in HPI [] All other systems were reviewed and found to be within normal limits, except as documented in this note. Current Medications Current Medications Current Medications Medications (Trade) Dose Ordered Sig/Krystin Start Time Stop Time Status Last Admin Dose Admin Ondansetron HCl (Zofran) 4 mg 1X ONCE 09/23/18 10:30 09/23/18 10:31 DC 09/23/18 10:58 4 MG Sodium Chloride 1,000 ml @ 1,000 mls/hr 1X ONCE 09/23/18 10:30 09/23/18 11:29 DC 09/23/18 10:59 1,000 MLS/HR Allergies Allergies Allergies Coded Allergies Type Severity Reaction Last Updated Verified No Known Drug Allergies 08/04/17 No Physical Exam Physical Exam Constitutional: Well developed, well nourished, no acute distress, non-toxic appearance. [] HENT: Normocephalic, atraumatic, bilateral external ears normal, oropharynx dry , no oral exudates, nose normal. [] Eyes: PERRLA, EOMI, conjunctiva normal, no discharge. [] Neck: Normal range of motion, no tenderness, supple, no stridor. [] Cardiovascular:Heart rate regular rhythm, no murmur [] Lungs & Thorax: Bilateral breath sounds clear to auscultation [] Abdomen: Bowel sounds normal, soft, no tenderness, no masses, no pulsatile masses. Skin: Warm, dry, no erythema, no rash. [] Back: No tenderness, no CVA tenderness. [] Extremities: No tenderness, no cyanosis, no clubbing, ROM intact, no edema. [] Neurologic: Alert and oriented X 3, normal motor function, normal sensory function, no focal deficits noted. [] Psychologic: Affect normal, judgement normal, mood normal. [] Current Patient Data Vital Signs Vital Signs Date Time Temp Pulse Resp B/P (MAP) Pulse Ox O2 Delivery O2 Flow Rate FiO2 09/23/18 12:00 58 27 172/74 (106) 99 09/23/18 10:16 98.5 Room Air 98.5 Lab Values Laboratory Tests Test 09/23/18 11:50 09/23/18 12:05 09/23/18 13:00 Urine Collection Type Unknown Urine Color Yellow Urine Clarity Clear Urine pH 7.5 Urine Specific [place] <=1.005 Urine Protein Negative mg/dL (NEG-TRACE) Urine Glucose (UA) Negative mg/dL (NEG) Urine Ketones (Stick) Trace mg/dL (NEG) Urine Blood Small (NEG) Urine Nitrite Negative (NEG) Urine Bilirubin Negative (NEG) Urine Urobilinogen Dipstick 0.2 mg/dL (0.2 mg/dL) Urine Leukocyte Esterase Negative (NEG) Urine RBC 11-20 /HPF (0-2) Urine WBC 5-10 /HPF (0-4) Urine Squamous Epithelial Cells Few /LPF Urine Bacteria Many /HPF (0-FEW) Urine Mucus Slight /LPF White Blood Count 7.0 x10^3/uL (4.0-11.0) Red Blood Count 4.19 x10^6/uL (3.50-5.40) Hemoglobin 13.1 g/dL (12.0-15.5) Hematocrit 38.0 % (36.0-47.0) Mean Corpuscular Volume 91 fL (79-100) Mean Corpuscular Hemoglobin 31 pg (25-35) Mean Corpuscular Hemoglobin Concent 35 g/dL (31-37) Red Cell Distribution Width 13.0 % (11.5-14.5) Platelet Count 165 x10^3/uL (140-400) Neutrophils (%) (Auto) 69 % (31-73) Lymphocytes (%) (Auto) 22 % (24-48) L Monocytes (%) (Auto) 8 % (0-9) Eosinophils (%) (Auto) 1 % (0-3) Basophils (%) (Auto) 1 % (0-3) Neutrophils # (Auto) 4.8 x10^3uL (1.8-7.7) Lymphocytes # (Auto) 1.5 x10^3/uL (1.0-4.8) Monocytes # (Auto) 0.6 x10^3/uL (0.0-1.1) Eosinophils # (Auto) 0.0 x10^3/uL (0.0-0.7) Basophils # (Auto) 0.0 x10^3/uL (0.0-0.2) Platelet Estimate Adequate (ADEQUATE) Sodium Level 141 mmol/L (136-145) Potassium Level 4.1 mmol/L (3.5-5.1) Chloride Level 102 mmol/L (98-107) Carbon Dioxide Level 31 mmol/L (21-32) Anion Gap 8 (6-14) Blood Urea Nitrogen 13 mg/dL (7-20) Creatinine 0.9 mg/dL (0.6-1.0) Estimated GFR (Cockcroft-Gault) 61.5 BUN/Creatinine Ratio 14 (6-20) Glucose Level 103 mg/dL (70-99) H Calcium Level 9.2 mg/dL (8.5-10.1) Total Bilirubin 0.6 mg/dL (0.2-1.0) Aspartate Amino Transferase (AST) 29 U/L (15-37) Alanine Aminotransferase (ALT) 19 U/L (14-59) Alkaline Phosphatase 42 U/L (46-116) L Troponin I Quantitative < 0.017 ng/mL (0.000-0.055) Total Protein 6.7 g/dL (6.4-8.2) Albumin 3.9 g/dL (3.4-5.0) Albumin/Globulin Ratio 1.4 (1.0-1.7) Lipase 108 U/L (73-393) Laboratory Tests 09/23/18 12:05 Laboratory Tests 09/23/18 13:00 EKG EKG [] Interpretation Time: EKG shows a normal sinus rhythm with a rate of 59 there are no acute ischemic changes noted interpreted by me the timing encounter. Radiology/Procedures Radiology/Procedures [] Course & Med Decision Making Course & Med Decision Making Pertinent Labs and Imaging studies reviewed. (See chart for details) []Normal exam well-appearing benign abdomen plan to check labs hydrate and go from there In summary this is a 72-year-old female with a history of recurrent ER visits for nausea in the past who is presenting with nausea and vomiting isolated no abdominal pain no chest pain or shortness of breath does not have any urinary symptoms but does maybe have a borderline UTI. I discussed with the patient we did give a dose of IV antibiotics and a perception for Keflex labs were done they hemolyzed twice causing a delay of care in the emergency room but ultimately the patient was discharged in stable condition with fairly reassuring normal looking labs overall. Return precautions discussed and he voiced understanding Dragon Disclaimer Dragon Disclaimer This electronic medical record was generated, in whole or in part, using a voice recognition dictation system. Departure Departure Impression: Primary Impression: Nausea & vomiting Additional Impression: Elevated blood pressure reading Disposition: HOME, SELF-CARE Condition: IMPROVED Referrals: MABEL BROOKS MD (PCP) Scripts Cephalexin (CEPHALEXIN) 500 Mg Tablet 1 TAB PO QID, #40 TAB Prov: ROYCE KNIGHT MD 09/23/18 Problem Qualifiers ROYCE KNIGHT MD Sep 23, 2018 11:30
[2018-09-23 12:06] LABS: BILIRUBIN,URINE NEGATIVE (NEG); CLARITY,URINE CLEAR; COLOR,URINE YELLOW; NITRITE,URINE NEGATIVE (NEG); PH,URINE 7.5; PROTEIN,URINE NEGATIVE (NEG-TRACE); UROBILINOGEN,URINE 0.2 mg/dL (0.2 mg/dL)
[2018-09-23 12:19] LABS: BACTERIA,URINE MANY /HPF (0-FEW); SQUAMOUS EPITHELIAL CELL,UR FEW /LPF
[2018-09-23 12:28] LABS: BASO % 1 % (0-3); EOS % 1 % (0-3); HEMOGLOBIN 13.1 g/dL (12.0-15.5); LYMPH # 1.5 x10^3/uL (1.0-4.8); LYMPH % 22 % (24-48); MEAN CORPUSCULAR HEMOGLOBIN 31 pg (25-35); MEAN CORPUSCULAR HGB CONC 35 g/dL (31-37); MEAN CORPUSCULAR VOLUME 91 fL (79-100); MONO # 0.6 x10^3/uL (0.0-1.1); MONO % 8 % (0-9); NEUT # 4.8 x10^3uL (1.8-7.7); NEUT % 69 % (31-73); PLATELET COUNT 165 x10^3/uL (140-400); RED BLOOD COUNT 4.19 x10^6/uL (3.50-5.40)
[2018-09-23] MEDS ORDERED: CEPH500T PO (12:48)
[2018-09-23 13:33] LABS: CALCIUM 9.2 mg/dL (8.5-10.1); CREATININE 0.9 mg/dL (0.6-1.0); GFR 61.5; POTASSIUM 4.1 mmol/L (3.5-5.1)
[2018-09-23 13:39] LABS: ALBUMIN 3.9 g/dL (3.4-5.0); ALBUMIN/GLOBULIN RATIO 1.4 (1.0-1.7); TOTAL BILIRUBIN 0.6 mg/dL (0.2-1.0); TOTAL PROTEIN 6.7 g/dL (6.4-8.2)
[2018-09-23 14:00] VITALS: BP 177/77
[2018-09-23 14:38] LABS: PLT ESTIMATE ADEQUATE (ADEQUATE)
== END 2018-09-23 14:37 | disposition home or self-care (01) ==
LOC: ER 10:08
DX: R11.2 Nausea with vomiting, unspecified (principal); I10 Essential (primary) hypertension; E78.00 Pure hypercholesterolemia, unspecified; Z87.440 Personal history of urinary (tract) infections; Z90.49 Acquired absence of other specified parts of digestive tract
CPT/HCPCS: 36415; 80053; 81001; 83690; 84484; 85025; 87086; 93005; 96361; 96374; 99285; J2405; J7030; 87186

== ENCOUNTER → 2018-12-29 | Day surgery (SDC) | payer BC ==
[~2018-12-29] MED LIST changes: +CALC1TAB75 PO; +CEPH500T PO; +ESCITALOPRAM OX10 MG PO; +HYDR-2145 PO; -HYDR-2758 PO; +HYDR-2761 PO; +HYDR-3164 PO; -HYDR-971 PO; +HYDROmorphone 2 MG/ML VIAL IV PRN; +IV RINGERS,LACTATED 1000ML 1,000 ML IV SCH; +LACT1CAP6 PO; +LIDOCAINE 1% PF 2 ML VIAL. ID PRN; +LOSA-73 PO; -LOSA50TA2 PO; +MORPHINE SULFATE 4 MG/ML VIAL. IV PRN; +PROCHLORPERAZINE 10 MG/2 ML VIAL. IV PRN; +PROPOFOL 20 ML IV ONE; +Pantoprazole PO; +fentaNYL PF VIAL 100 MCG/2 ML VIAL IV PRN
[2018-12-29 09:53] VITALS: BP 116/60
--- NOTE | 2018-12-29 09:59 | CONS ---
DATE OF CONSULTATION: 12/29/2018 REASON FOR CONSULTATION: Followup of gastric ulcer. HISTORY OF PRESENT ILLNESS: This is a 73-year-old female whose past medical history is significant for hypertension, hyperlipidemia and gastric ulcers, who is seen for surveillance endoscopy to confirm healing. She states her weight and appetite have been stable and has no additional complaints presently. PAST MEDICAL HISTORY: Hypertension, hyperlipidemia, history of UTIs, colitis, diverticulosis, hemorrhoids, status post cholecystectomy and ERCP. FAMILY AND SOCIAL HISTORY: Significant for coronary artery disease, diabetes and hypertension. Nonsmoker and nondrinker. MEDICATIONS: Include atenolol, calcium, citalopram, hydrochlorothiazide, multivitamin, Zofran, simvastatin and Protonix. REVIEW OF SYSTEMS: Per records. PHYSICAL EXAMINATION: GENERAL: Reveals a well-nourished, well-developed female, who is alert and cooperative, in no acute distress. VITAL SIGNS: Temperature 98.6, pulse 57, respirations 20 and blood pressure was 130/75. HEENT EXAMINATION: Normocephalic, atraumatic head. Pupils and extraocular . NECK: Supple. LUNGS: Clear. CARDIOVASCULAR EXAMINATION: Reveals S1, S2, without S3, S4 or appreciable murmur. ABDOMEN: Examination reveals a soft abdomen. Normal bowel sounds, without appreciable hepatosplenomegaly. Multiple surgical incisions. EXTREMITIES: Examination reveals no cyanosis, clubbing or edema. IMPRESSION: Gastric ulcer. Surveillance endoscopy to confirm healing is recommended. Risks and benefits of the procedure including risk of hemorrhage and perforation, requiring operation were discussed. The patient is willing to proceed at this time. MARKO STUART MD DR: KRISTIN/milla JOB#: [id number] / [id number]
== END | disposition home or self-care (01) ==
LOC: ENDOS 07:52
PROVIDERS: ATTEND Internal Medicine Gastroenterology
DX: K31.5 Obstruction of duodenum (principal); K29.50 Unspecified chronic gastritis without bleeding; I10 Essential (primary) hypertension; E78.5 Hyperlipidemia, unspecified; Z87.440 Personal history of urinary (tract) infections; Z87.19 Personal history of other diseases of the digestive system; Z90.49 Acquired absence of other specified parts of digestive tract; Z98.890 Other specified postprocedural states; Z82.49 Family history of ischemic heart disease and other diseases of the circulatory system; Z83.3 Family history of diabetes mellitus; Z79.899 Other long term (current) drug therapy
CPT/HCPCS: 43235; J2704

== ENCOUNTER → 2019-03-22 | Outpatient (CLI) | payer BC ==
[2018-12-29 09:53] VITALS: BP 116/60
[~2019-03-22] MED LIST changes: -HYDROmorphone 2 MG/ML VIAL IV PRN; -IV RINGERS,LACTATED 1000ML 1,000 ML IV SCH; -LIDOCAINE 1% PF 2 ML VIAL. ID PRN; -MORPHINE SULFATE 4 MG/ML VIAL. IV PRN; -PROCHLORPERAZINE 10 MG/2 ML VIAL. IV PRN; -PROPOFOL 20 ML IV ONE; -fentaNYL PF VIAL 100 MCG/2 ML VIAL IV PRN
--- NOTE | 2019-03-22 11:37 | CARD ---
MR#: [id number] Date of Study: 03/22/2019 Ordering Physician: SHERWIN MATA, Referring Physician: SHERWIN MATA, Tech: Salma Morales APPROVED REPORT EXAM: Two-dimensional and M-mode echocardiogram with Doppler and color Doppler. Other Information Quality : AverageHR: 56bpm INDICATION Hypertension/HCVD RISK FACTORS Hypertension Hyperlipidemia 2D DIMENSIONS RVDd2.0 (2.9-3.5cm)Left Atrium(2D)3.4 (1.6-4.0cm) IVSd0.8 (0.7-1.1cm)Aortic Root(2D)2.9 (2.0-3.7cm) LVDd5.9 (3.9-5.9cm)LVOT Diameter2.2 (1.8-2.4cm) PWd1.0 (0.7-1.1cm)LVDs2.8 (2.5-4.0cm) FS (%) 52.4 %SV143.6 ml LVEF(%)82.8 (>50%) Aortic Valve AoV Peak Oli.125.7cm/sAoV VTI27.8cm AO Peak GR.6.3mmHgLVOT Peak Oli.116.2cm/s LVOT VTI 28.24cmAO Mean GR.3mmHg DACIA (VMAX)2.03sx1ZKS (VTI)3.75cm2 AI P 1/2 Sain043lb Mitral Valve MV E Ifmyoxix38.8cm/sMV E Peak Gr.139mmHg MV DECEL RHTH336olOH A Uipetmmu19.5cm/s MV E Mean Gr.2mmHgMV [id number] E/A Ratio1.1MVA (PHT)3.35cm2 TDI E/Lateral E'7.7E/Medial E'8.8 Pulmonary Valve PV Peak Tdzsxrql50.8cm/sPV Peak Grad.4mmHg Tricuspid Valve TR P. Ffxdkjtq844ua/sRAP [id number] TR Peak Gr.85wgXcRITR89euQs Pulmonary Vein D2 Apbvarti18.4cm/sPVa [id number] LEFT VENTRICLE The left ventricle is normal size. There is borderline concentric left ventricular hypertrophy. The l eft ventricular systolic function is normal. The Ejection Fraction is 60-65%. There is normal LV segm ental wall motion. The left ventricular diastolic function and filling is normal for age. RIGHT VENTRICLE The right ventricle is normal size. There is normal right ventricular wall thickness. The right ventr icular systolic function is normal. ATRIA The left atrium size is normal. The right atrium size is normal. The interatrial septum is intact wit h no evidence for an atrial septal defect or patent foramen ovale as noted on 2-D or Doppler imaging. AORTIC VALVE The aortic valve is normal in structure and function. Doppler and Color Flow revealed mild aortic reg urgitation. There is no significant aortic valvular stenosis. MITRAL VALVE The mitral valve is normal in structure and function. There is no evidence of mitral valve prolapse. There is no mitral valve stenosis. Doppler and Color-flow revealed mild mitral regurgitation. TRICUSPID VALVE The tricuspid valve is normal in structure and function. Doppler and Color Flow revealed trace tricus pid regurgitation with an estimated PAP of 31 mmHg. There is no tricuspid valve stenosis. PULMONIC VALVE The pulmonary valve is normal in structure and function. Doppler and Color Flow revealed no pulmonic valvular regurgitation. GREAT VESSELS The aortic root is normal in size. The IVC is normal in size and collapses >50% with inspiration. PERICARDIAL EFFUSION There is no evidence of significant pericardial effusion. Critical Notification Critical Value: No <Conclusion> The left ventricular systolic function is normal. The Ejection Fraction is 60-65%. There is normal LV segmental wall motion. Mild aortic regurgitation. Mild mitral regurgitation. Trace tricuspid regurgitation with an estimated PAP of 31 mmHg. There is no evidence of significant pericardial effusion. Signed by : John Paul Shields, Electronically Approved : 03/22/2019 11:35:21
== END | disposition home or self-care (01) ==
LOC: ECHO 08:48
PROVIDERS: ATTEND Internal Medicine Cardiovascular Disease
DX: I08.0 Rheumatic disorders of both mitral and aortic valves (principal); I11.9 Hypertensive heart disease without heart failure; E78.5 Hyperlipidemia, unspecified
CPT/HCPCS: 93306

== ENCOUNTER → 2019-05-24 | Outpatient (CLI) | payer BC ==
[2018-12-29 09:53] VITALS: BP 116/60
--- NOTE | 2019-05-25 10:16 | RAD ---
DATE: 05/24/2019 EXAM: MAMMO CAM SCREENING BILATERAL HISTORY: Routine evaluation COMPARISON: 04/30/2018, 04/27/2017, 08/31/2009 mammographic exams This study was interpreted with the benefit of Computerized Aided Detection (CAD). Breast Density: HETERO The breast parenchyma is heterogenously dense, which could reduce sensitivity of mammography. Breast parenchyma level C. FINDINGS: Benign calcifications are present. No mass or distortion. IMPRESSION: Stable. BI-RADS CATEGORY: 1 NEGATIVE RECOMMENDED FOLLOW-UP: 12M 12 MONTH FOLLOW-UP PQRS compliance statement: Patient information was entered into a reminder system with a target due date in one year for the next mammogram. Mammography is a sensitive method for finding small breast cancers, but it does not detect them all and is not a substitute for careful clinical examination. A negative mammogram does not negate a clinically suspicious finding and should not result in delay in biopsying a clinically suspicious abnormality. "Our facility is accredited by the [employer] Mammography Program."
== END | disposition home or self-care (01) ==
LOC: MAMMO 15:10
PROVIDERS: ATTEND Family Medicine
DX: Z12.31 Encounter for screening mammogram for malignant neoplasm of breast (principal); N64.89 Other specified disorders of breast
CPT/HCPCS: 77063; 77067

== ENCOUNTER → 2020-06-04 | Outpatient (CLI) | payer BC ==
[2018-12-29 09:53] VITALS: BP 116/60
[~2020-06-04] MED LIST changes: +SIMV20TA18 PO; -SIMV20TA3 PO
--- NOTE | 2020-06-04 15:36 | RAD ---
BILATERAL SCREENING MAMMOGRAM, 3-D History: Routine screening. Comparison: 06/21/2019, 04/30/2018, 04/27/2017, 08/31/2009. Technique: MLO and CC digital tomosynthesis (3D) images obtained. Radiologist reviewed these images on dedicated workstation. Findings: Breast Tissue Density C : The breasts are heterogeneously dense, which may obscure small masses. There are no dominant masses, suspicious microcalcifications, or architectural distortion. IMPRESSION: No mammographic evidence of malignancy. Recommend routine screening. BI-RADS category 1: Negative. The images were reviewed with computer-aided detection. Patient information is entered into reminder system with a target due date for the next screening mammogram. Mammography is the most sensitive method for finding small breast cancers, but it does not detect them all and is not a substitute for careful clinical examination. A negative mammogram does not negate a clinically suspicious finding and should not result in delay in biopsying a clinically suspicious abnormality. "Our facility is accredited by the [employer] Mammography [employer]." Electronically signed by: Richard Almodovar MD (06/04/2020 3:33 PM) [email or web address]
== END ==
LOC: MAMMO 08:27
PROVIDERS: ATTEND Family Medicine
DX: Z12.31 Encounter for screening mammogram for malignant neoplasm of breast (principal)
CPT/HCPCS: 77063; 77067

== ENCOUNTER → 2021-06-19 | Outpatient (CLI) | payer BC ==
[2018-12-29 09:53] VITALS: BP 116/60
[~2021-06-19] MED LIST changes: +CALC-627 PO; -CALC1TAB75 PO
--- NOTE | 2021-06-19 15:12 | RAD ---
PROCEDURE: MG BILAT SCREEN+CAM HISTORY: The patient is 75 years old and is seen for Reason: SCREENING MAMMOGRAM / Spl. Instructions: covid shot right arm 02-26-21 / History: . COMPARISON: June 04, 2020 and May 24, 2019 TECHNIQUE: CC and MLO views of both breasts were obtained. Images were processed by the [employer] computer-aided detection system. DENSITY: The breast parenchyma is heterogeneously dense. This may lower the sensitivity of mammograph y. FINDINGS: Right breast: Lobulated mass within the right medial breast with calcifications, unchanged, likely fi broadenoma. Left breast breast: No suspicious microcalcifications, mass or architectural distortion. IMPRESSION: Negative. No evidence of malignancy. Recommend annual screening mammograms per [employer] guidelines. She will be due in one year. BI-RADS category 2 Benign Patient entered into a reminder system for annual screening mammogram. Electronically signed by: Epifanio Roman DO (06/19/2021 3:10 PM) [email or web address]
== END ==
LOC: MAMMO 08:05
PROVIDERS: ATTEND Family Medicine
DX: Z12.31 Encounter for screening mammogram for malignant neoplasm of breast (principal)
CPT/HCPCS: 77063; 77067